=== PATIENT | female | born 1940 | race Caucasian/White ===

== ENCOUNTER 2016-12-28 07:58 | Day surgery (SDC) | payer MEDICAID, MEDICARE ==
[2016-12-27 07:15] VITALS: BMI 27.6
[2016-12-28] MEDS ORDERED: Propofol 10 mg/ml Inj (20 ML) ONE (09:08)
[2016-12-28] MEDS ORDERED: Midazolam 2 MG/2 ML VIAL ONE (09:09)
[2016-12-28] MEDS ORDERED: Lactated Ringer's 1,000 ML IV SCH (10:03)
[2016-12-28 10:35] VITALS: PULSE 79
[2016-12-28 10:55] VITALS: BP 138/83; RESP 19; TEMP 97.5; O2SAT 100
== END 2016-12-28 11:40 | disposition home or self-care (01) ==
LOC: ENDO 07:58
PROVIDERS: ATTEND Internal Medicine Gastroenterology
DX: D12.2 Benign neoplasm of ascending colon (principal); K29.50 Unspecified chronic gastritis without bleeding; K44.9 Diaphragmatic hernia without obstruction or gangrene; D12.3 Benign neoplasm of transverse colon; K57.30 Diverticulosis of large intestine without perforation or abscess without bleeding; K64.8 Other hemorrhoids; I10 Essential (primary) hypertension; K59.09 Other constipation; F03.90 Unspecified dementia, unspecified severity, without behavioral disturbance, psychotic disturbance, mood disturbance, and anxiety; I48.91 Unspecified atrial fibrillation; E55.9 Vitamin D deficiency, unspecified; R11.0 Nausea; K30 Functional dyspepsia
CPT/HCPCS: 43239; 45380; 45385; 88305; 88342; J2250; J2704; J3010; J7040; J7120

== ENCOUNTER 2018-06-25 10:45 | Observation (INO) | payer MEDICARE, MEDICAID ==
[2018-06-25 10:54] VITALS: BMI 27.7
--- NOTE | 2018-06-25 11:40 | ED PDOC ---
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 Patient is nonverbal secondary due to her Alzheimer's, so speaks for . 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 Patient's reports patient had a endoscopy performed a while back and was told by Dr. Zunilda Mcnamara that patient has gastritis. Also, patient shows to have a palpable visible hernia to the abdomen, which explains has been there for approximately 6 months. States patient is always complaining of pain in this area of her abdomen every day. Patient's denies patient having any nausea, vomiting, diarrhea, or any other complaints at this time. also mentions patient had a normal bowel movement and normally uses the bathroom every two days. Notes patient urinates frequently and wears a diaper every night. PMD: Dr. Juan M Bhakta Past Medical History - Provider Review Nursing Documentation Reviewed: Yes - Infectious Disease Hx of Infectious Diseases: None - Tetanus Immunization Tetanus Immunization: Unknown - Cardiac Hx Cardiac Disorders: Yes Hx Hypertension: Yes - Pulmonary Hx Respiratory Disorders: Yes Hx Pneumonia: Yes - Neurological Hx Paralysis: No - HEENT Hx HEENT Disorder: Yes Hx Cataracts: Yes (CATARACT SURGERY) - Renal Hx Renal Disorder: No - Endocrine/Metabolic Hx Endocrine Disorders: No - Hematological/Oncological Hx Blood Transfusions: (UNKNOWN) - Integumentary Hx Dermatological Disorder: No - Musculoskeletal/Rheumatological Hx Musculoskeletal Disorders: Yes - Gastrointestinal Hx Gastroesophageal Reflux: Yes - Genitourinary/Gynecological Hx Genitourinary Disorders: Yes Hx Urinary Tract Infection: Yes - Psychiatric Hx Emotional Abuse: No Hx Physical Abuse: No Hx Substance Use: No - Past Surgical History Past Surgical History: No Previous - Surgical History Hx Appendectomy: Yes Hx Cardiac Catheterization: Yes - Anesthesia Hx Anesthesia Reactions: No Hx Malignant Hyperthermia: No - Suicidal Assessment Feels Threatened In Home Enviroment: No Family/Social History - Physician Review Nursing Documentation Reviewed: Yes Family/Social History: No Known Family HX Smoking Status: Never Smoked Hx Alcohol Use: No Hx Substance Use: No Hx Substance Use Treatment: No Allergies/Home Meds Allergies/Adverse Reactions: Allergies No Known Allergies Allergy (Verified 06/25/18 10:53) Home Medications: Home Meds Medication Instructions Recorded Confirmed Aspirin [[place] Aspirin] 81 mg PO DAILY 12/21/16 06/25/18 Cholecalciferol [Vitamin D 1000 IU] 2,000 iu PO DAILY 12/21/16 06/25/18 Donepezil [Aricept] 10 mg PO DAILY 12/21/16 06/25/18 Famotidine [Pepcid] 20 mg PO DAILY 12/21/16 06/25/18 Ketotifen Fumarate [Zaditor 5 ml] 1 drop OU DAILY 12/21/16 06/25/18 Memantine [Namenda] 5 mg PO DAILY 12/21/16 06/25/18 Ondansetron HCl [Zofran] 4 mg PO PRN PRN 12/21/16 06/25/18 Review of Systems - Physician Review All systems were reviewed & negative as marked: Yes - Review of Systems Cardiovascular: Chest Pain Gastrointestinal: Abdominal Pain. absent: Diarrhea, Nausea, Vomiting Genitourinary Female: Frequency Physical Exam - Physical Exam Narrative Physical Exam (Text): Gen: VS reviewed, patient is non-verbal secondary to limited Alzheimer's, well nourished, nontoxic, mild distress. ENT: normal pharynx. Eye: EOMI, PERRL. Neck: no JVD, supple, no adenopathy. CV: regular rate, irregularly irregular rhythm, no rubs, no murmur, no gallops, S1, S2, pulses equal and strong. Pulm: no distress, clear to auscultation, no wheeze, no rhonchi, breath sounds equal, no rales. Abd: enlarged with umbilical hernia (reproducibly smaller to touch), no guarding, no rebound, no rigidity, normal bowel sounds. Ext: trace edema to lower extremities bilaterally. Skin: good color, no rash, no cyanosis. Psych: responds appropriately to questions, normal affect. Neuro: oriented x 3, CN2-12 intact grossly, motor intact, sensation intact. Vital Signs Temp Pulse Resp BP Pulse Ox 06/25/18 10:45 98.3 F 71 16 133/78 100 Medical Decision Making ED Course and Treatment: 06/25/18 11:44 Impression: 77 year old female with chest/abdominal pain. Physical exam shows heart is irregularly irregular rhythm; trace edema to lower extremities bilaterally; abdomen is enlarged with umbilical hernia (reproducibly smaller to touch); patient is non-verbal secondary to limited Alzheimer's. Plan: -- EKG -- Abd/Pelvis CT -- Chest X-ray -- Labs -- Reassess and disposition Prior Visits: Notes and results from previous visits were reviewed. Patient was last seen in the emergency department on 10/16/2016 for AMS. Patient was admitted. Progress Notes: 06/25/18 10:53 EKG: Ordered, reviewed, and independently interpreted the EKG. Rate : 71 BPM Rhythm : Atrial Fibrillation Interpretation : Right Bundle Branch Block, no acute ST- and T- wave abnormality. Comparison : No previous EKG for comparison. 06/25/18 14:44 Family has been informed patient will need a follow-up with specialist due to abnormal findings on CT scan. 06/25/18 15:[address] beltrán, patient to be admitted observation for chest pain. consult request to dr. cisneros and dr. peguero. patient remained stable throughout ED course. - Lab Interpretations I have reviewed the lab results: Yes - RAD Interpretation Narrative RAD Interpretations (Text): 06/25/2018 12:34 Chest X-ray IMPRESSION: No active disease. Dictator: Kyle Ramon MD 06/25/2018 14:25 Abd/Pelvis CT IMPRESSION: Large right periumbilical hernia as well as a large hiatal hernia. Colonic diverticulosis. Cardiomegaly. Small left pleural effusion. Prominence of the endometrium, atypical for a postmenopausal female; recommend gynecological consultation. Dictator: Quincy Silver MD Radiology Orders: 06/25/18 11:37 CHEST PORTABLE [RAD] Stat 06/25/18 11:38 ABDOMEN & PELVIS [ABD & PELVIS IV CONTRAST ONLY] [CT] Stat - Scribe Statement The provider has reviewed the documentation as recorded by the Scribe Gopi Vega Provider Scribe Attestation: All medical record entries made by the Scribe were at my direction and personally dictated by me. I have reviewed the chart and agree that the record accurately reflects my personal performance of the history, physical exam, medical decision making, and the department course for this patient. I have also personally directed, reviewed, and agree with the discharge instructions and disposition. Disposition/Present on Arrival - Present on Arrival Any Indicators Present on Arrival: No History of DVT/PE: No History of Uncontrolled Diabetes: No Urinary Catheter: No History of Decub. Ulcer: No History Surgical Site Infection Following: None - Disposition Have Diagnosis and Disposition been Completed?: Yes Diagnosis: Chest pain, Abdominal pain Disposition: HOSPITALIZED Disposition Time: 15:20 Patient Plan: Observation Patient Problems: Current Active Problems Problem Status Onset Chest pain Acute Abdominal pain Acute Condition: STABLE
[2018-06-25 12:26] LABS: BASO # 0.02 K/mm3 (0.0-2.0); BASO % 0.3 % (0.0-3.0); EOS # 0.2 (0.0-0.7); EOS % 3.1 % (1.5-5.0); GRAN # 4.09 (1.4-6.5); GRAN % 63.3 % (50.0-68.0); HEMOGLOBIN 12.3 g/dL (12.0-16.0); LYMPH # 1.8 (1.2-3.4); LYMPH % 27.1 % (22.0-35.0); MEAN CELL VOLUME 96.7 fl (80.0-105.0); MEAN PLATELET VOLUME 9.6 fl (7.0-11.0); MONO # 0.4 (0.1-0.6); MONO % 6.2 % (1.0-6.0); RBC 3.97 10^6/uL (3.5-6.1); RED CELL DISTRIBUTION WIDTH 14.9 % (11.5-14.5); WHITE BLOOD COUNT 6.5 10^3/uL (4.5-11.0)
[2018-06-25 12:34] LABS: INR 1.03; PARTIAL THROMBOPLASTIN TIME 31.2 Seconds (25.1-36.5); PROTHROMBIN TIME 11.9 SECONDS (9.4-12.5)
[2018-06-25 12:35] LABS: ALB/GLOB RATIO 1.1 (1.1-1.8); ALBUMIN 3.5 g/dL (3.0-4.8); BLOOD UREA NITROGEN 24 mg/dL (7-21); CALCIUM 9.4 mg/dL (8.4-10.5); GFR NON-AFRICAN AMERICAN > 60; LIPASE 55 U/L (23-300)
[2018-06-25 12:37] LABS: ALT/SGPT 30 U/L (7-56); AST/SGOT 31 U/L (14-36)
--- NOTE | 2018-06-25 12:38 | RAD ---
Date of service: 06/25/2018 HISTORY: chest pain COMPARISON: 10/19/2016 FINDINGS: LUNGS: No active pulmonary disease. PLEURA: No significant pleural effusion identified, no pneumothorax apparent. CARDIOVASCULAR: No aortic atherosclerotic calcification present. Mild cardiomegaly no pulmonary vascular congestion. OSSEOUS STRUCTURES: No significant abnormalities. VISUALIZED UPPER ABDOMEN: Normal. OTHER FINDINGS: None. IMPRESSION: No active disease.
[2018-06-25 12:47] LABS: TROPONIN I < 0.01 ng/mL
[2018-06-25] MEDS ORDERED: Iohexol 350 MG/100 ML VIAL ONE (12:59)
--- NOTE | 2018-06-25 14:29 | CT ---
Date of service: 06/25/2018 PROCEDURE: CT Abdomen and Pelvis with contrast HISTORY: abdominal pain, hernia COMPARISON: 02/06/2015 TECHNIQUE: Contrast dose: Radiation dose: Total exam DLP = 774.95 mGy-cm. This CT exam was performed using one or more of the following dose reduction techniques: Automated exposure control, adjustment of the mA and/or kV according to patient size, and/or use of iterative reconstruction technique. FINDINGS: LOWER THORAX: Large hiatal hernia. Cardiomegaly. Small left pleural effusion. LIVER: Unremarkable. No gross lesion or ductal dilatation. GALLBLADDER AND BILE DUCTS: Unremarkable. PANCREAS: Unremarkable. No gross lesion or ductal dilatation. SPLEEN: Unremarkable. ADRENALS: Unremarkable. No mass. KIDNEYS AND URETERS: Unremarkable. No hydronephrosis. No solid mass. VASCULATURE: Unremarkable. No aortic aneurysm. No aortic atherosclerotic calcification or mural plaque present. BOWEL: Extensive left-sided colonic diverticulosis. No obstruction. No gross mural thickening. APPENDIX: Normal appendix. PERITONEUM: Unremarkable. No free fluid. No free air. LYMPH NODES: Unremarkable. No enlarged lymph nodes. BLADDER: Unremarkable. REPRODUCTIVE: Prominence of the endometrium, atypical for a postmenopausal female; recommend gynecological consultation. BONES: Chronic L1 compression fracture. OTHER FINDINGS: Large right periumbilical hernia containing omental fat. IMPRESSION: Large right periumbilical hernia as well as a large hiatal hernia. Colonic diverticulosis. Cardiomegaly. Small left pleural effusion. Prominence of the endometrium, atypical for a postmenopausal female; recommend gynecological consultation.
--- NOTE | 2018-06-25 17:52 | CARD ---
APPROVED REPORT Date of service: 06/25/2018 EKG Measurement Heart [id number] <Conclusion> Atrial fibrillation Right bundle branch block Abnormal ECG
[2018-06-25] MEDS: Sodium Chloride 0.45% 1,000 ML IV SCH (21:59)
--- NOTE | 2018-06-26 01:37 | HP ---
DATE OF EXAM: HISTORY OF PRESENT ILLNESS: I was called down to the emergency room to see this nice young lady. She is an Kisw[place]ili [place] lady. She is presently confused in bed. She has a past medical history of Alzheimer's, hypertension, pneumonia, chronic AFib. 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 The patient's reports she had endoscopy performed well back. She had gastritis in the past. There is a visible hernia in the abdomen. She had abdominal pain and chest pain and now she is wearing the diaper. She is incontinent of urine. She has hypertension, pneumonia history, history of cataract surgery, GERD, urinary tract infections in the past, cardiac catheterizations, she had appendectomy. FAMILY HISTORY: No known family history. SOCIAL HISTORY: Never smoked. No alcohol. No drugs. ALLERGIES: NO KNOWN DRUG ALLERGIES. MEDICATIONS: She is on aspirin, vitamin D, Aricept, Pepcid, Zaditor, Namenda and Zofran. REVIEW OF SYSTEMS: She is smiling and laughing. She has chest pain and abdominal pain. No nausea, vomiting, constipation, diarrhea, or increasing urinary frequency. PHYSICAL EXAMINATION: VITAL SIGNS: She has a 98.3 temperature, 71 pulse, 16 respiratory rate, 133/78 blood pressure, and 100% O2 sat. GENERAL: She is alert, smiling, laughing, no acute distress, and nonverbal secondary to Alzheimer's disease. No apparent distress. HEENT: Extraocular muscles are intact. Pupils are equal and reactive to light. NECK: Supple. No JVD. Throat is moist. HEART: Irregular. Normal S1 and S2. LUNGS: Decreased breath sounds, but clear to auscultation. No wheezes, rhonchi or rales. ABDOMEN: Extremely large right-sided abdominal hernia, is reducible to touch, it is big. No guarding. No rebound. No CVA tenderness. EXTREMITIES: No edema. SKIN: For the most parts, no rashes or ulcers appreciated. Fair turgor. NEUROLOGIC: She has a normal affect, but she just laughs. Cranial nerves II through XII grossly intact. Alert, but not oriented, cannot adjust that. LABORATORY DATA: She had multiple tests done. Chest x-ray; no acute disease. CAT scan of the abdomen and pelvis shows a large right periumbilical hernia as well as the large hiatal hernia, colonic diverticulosis, cardiomegaly, small left pleural effusion, problems with endometrium made typical for postmenopausal female. RECOMMENDATIONS: Gynecological consults. She had multiple tests done. She has 6.5 white count, 12.3 hemoglobin, 38.4 hematocrit with 338,000 platelets. INR 1.03. Sodium 142, potassium 4.2, BUN 24, creatinine 0.7, should be on IV fluids. GFR is greater than 60. Sugar is 131, calcium is 9.4, total bili is 0.3, AST is 21, ALT is 30, and alk phos is 65. Troponin I is less than 0.01, total protein 6.9, albumin is 2.5, globulin 3.3, and lipase is 55. She will have some physical therapy. She will have IV fluids. We put back her on medications. We check on the troponins x2 consult to evaluate her issues and hopefully she did well. She is here for chest pain, abdominal pain, AFib, which is chronic. She has an abnormal endometrial layer, she will have STRAIGHTEDGE MAN consult and presently she is comfortable in bed. She is here on observation. Chris Hamilton DO MTDD
[2018-06-26 04:33] LABS: HEMOGLOBIN 13.2 g/dL (12.0-16.0); MEAN CELL VOLUME 94.7 fl (80.0-105.0); MEAN CORPUSCULAR HEMOGLOBIN 30.7 pg (25.0-35.0); MEAN CORPUSCULAR HGB CONC 32.4 g/dl (31.0-37.0); MEAN PLATELET VOLUME 9.5 fl (7.0-11.0); RBC 4.3 10^6/uL (3.5-6.1); RED CELL DISTRIBUTION WIDTH 14.8 % (11.5-14.5); WHITE BLOOD COUNT 5.4 10^3/uL (4.5-11.0)
[2018-06-26 04:56] LABS: TROPONIN I < 0.01 ng/mL
[2018-06-26 04:58] LABS: ALBUMIN 3.6 g/dL (3.0-4.8); ALT/SGPT 29 U/L (7-56); AST/SGOT 29 U/L (14-36); BLOOD UREA NITROGEN 17 mg/dL (7-21); CALCIUM 9.1 mg/dL (8.4-10.5); GFR NON-AFRICAN AMERICAN > 60
--- NOTE | 2018-06-26 08:07 | CP.PCM.CON ---
History of Present Illness - History of Present Illness History of Present Illness: 77F with PMHx of Alzheimer's disease, HTN, pneumonia, and atrial fibrillation [place] [facility] with complains of chest pain and abdominal pain the past two days. Patient is non verbal, referred to ED documentation records for inform ation. History was given to ED attending via surgery scheduling coordinator as patient's is japanese speaking. At time of examination, patient laying in bed and appears comfortable. As per reports, noted ventral hernia for about 6 months ago. As per patient is having BMs. PMH:as stated above PSH: ?prior ventral hernia repair All: NKDA Review of Systems - Review of Systems Systems not reviewed;Unavailable: Dementia Past Patient History - Infectious Disease Hx of Infectious Diseases: None - Tetanus Immunizations Tetanus Immunization: Unknown - Past Social History Smoking Status: Never Smoked - CARDIAC Hx Cardia Arrhythmia: Yes (Afib) Hx Hypertension: Yes - PULMONARY Hx Pneumonia: Yes - NEUROLOGICAL Hx Alzheimer's Disease: Yes - HEENT Hx Cataracts: Yes - RENAL Hx Chronic Kidney Disease: No - ENDOCRINE/METABOLIC Hx Endocrine Disorders: No - HEMATOLOGICAL/ONCOLOGICAL Hx Blood Transfusions: (UNKNOWN) - INTEGUMENTARY Hx Dermatological Problems: No - MUSCULOSKELETAL/RHEUMATOLOGICAL Hx Falls: No - GASTROINTESTINAL Hx Gastrointestinal Disorders: Yes (Gastritis) Hx Gastroesophageal Reflux: Yes Other/Comment: periumbical hernia - GENITOURINARY/GYNECOLOGICAL Hx Urinary Tract Infection: Yes - PSYCHIATRIC Hx Anxiety: Yes - SURGICAL HISTORY Hx Appendectomy: Yes Hx Cardiac Catheterization: Yes - ANESTHESIA Hx Anesthesia Reactions: No Hx Malignant Hyperthermia: No Meds Allergies/Adverse Reactions: Allergies Allergy/AdvReac Type Severity Reaction Status Date / Time No Known Allergies Allergy Verified 06/25/18 10:53 - Medications Medications: Current Medications Aspirin (Ecotrin) 81 mg PO DAILY [facility] Donepezil HCl (Aricept) 10 mg PO DAILY [facility] Famotidine (Pepcid) 20 mg PO DAILY [facility] Sodium Chloride (Sodium Chloride 0.45%) 1,000 mls @ 40 mls/hr IV .Q24H [facility] Last Admin: 06/25/18 21:59 Dose: 40 mls/hr Memantine (Namenda) 5 mg PO DAILY [facility] Non-Formulary Medication (Ketotifen Fumarate [Zaditor]) 1 drop OU DAILY [facility] Ondansetron HCl (Zofran Tab) 4 mg PO Q6H PRN PRN Reason: Nausea/Vomiting Physical Exam - Constitutional Appears: No Acute Distress - Head Exam Head Exam: NORMOCEPHALIC - Eye Exam Eye Exam: EOMI, Normal appearance - ENT Exam ENT Exam: Mucous Membranes Moist - Respiratory Exam Respiratory Exam: NORMAL BREATHING PATTERN - Cardiovascular Exam Cardiovascular Exam: +S1, +S2 - GI/Abdominal Exam GI & Abdominal Exam: Hernia, Soft. absent: Distended, Firm, Guarding Additional comments: Ventral incisional hernia - Neurological Exam Neurological exam: Alert, Oriented x3 - Psychiatric Exam Psychiatric exam: Normal Mood - Skin Skin Exam: Dry, Intact, Warm Results - Vital Signs Recent Vital Signs: Last Vital Signs Temp 98.4 F 06/26/18 06:00 Pulse 82 06/26/18 06:00 Resp 18 06/26/18 06:00 BP 136/61 06/26/18 06:00 Pulse Ox 97 06/26/18 06:00 - Labs Result Diagrams: 06/26/18 04:15 06/26/18 04:15 Labs: Laboratory Results - last 24 hr 06/25/18 06/25/18 06/25/18 12:10 12:10 12:10 WBC 6.5 RBC 3.97 Hgb 12.3 Hct 38.4 MCV 96.7 MCH 31.0 MCHC 32.0 RDW 14.9 H Plt Count 338 MPV 9.6 Gran % 63.3 Lymph % (Auto) 27.1 Garland % (Auto) 6.2 H Eos % (Auto) 3.1 Baso % (Auto) 0.3 Gran # 4.09 Lymph # (Auto) 1.8 Garland # (Auto) 0.4 Eos # (Auto) 0.2 Baso # (Auto) 0.02 PT 11.9 INR 1.03 APTT 31.2 Sodium 142 Potassium 4.2 Chloride 108 H Carbon Dioxide 28 Anion Gap 10 BUN 24 H Creatinine 0.7 Est GFR ( Amer) > 60 Est GFR (Non-Af Amer) > 60 Random Glucose 131 H Calcium 9.4 Total Bilirubin 0.3 AST 31 ALT 30 Alkaline Phosphatase 65 Troponin I < 0.01 Total Protein 6.9 Albumin 3.5 Globulin 3.3 Albumin/Globulin Ratio 1.1 Lipase 55 06/26/18 06/26/18 04:15 04:15 WBC 5.4 RBC 4.30 Hgb 13.2 Hct 40.7 MCV 94.7 MCH 30.7 MCHC 32.4 RDW 14.8 H Plt Count 342 MPV 9.5 Gran % Lymph % (Auto) Garland % (Auto) Eos % (Auto) Baso % (Auto) Gran # Lymph # (Auto) Garland # (Auto) Eos # (Auto) Baso # (Auto) PT INR APTT Sodium 140 Potassium 4.2 Chloride 106 Carbon Dioxide 28 Anion Gap 10 BUN 17 Creatinine 0.7 Est GFR ( Amer) > 60 Est GFR (Non-Af Amer) > 60 Random Glucose 97 Calcium 9.1 Total Bilirubin 0.4 AST 29 ALT 29 Alkaline Phosphatase 83 Troponin I < 0.01 Total Protein 7.0 Albumin 3.6 Globulin 3.4 Albumin/Globulin Ratio 1.0 L Lipase Assessment & Plan - Assessment and Plan (Free Text) Assessment: 77F with incisional hernia, not incarcerated, easily reducible Plan: -Patient's hernia easily reducible -Monitor bowel function -No plans for acute surgical intervention at this present time -Further recs per Dr. Steen covering for Dr. Honorio Merrill PGY3
--- NOTE | 2018-06-26 08:36 | CP.PCM.CON ---
<Allyson Sharp - Last Filed: 06/26/18 12:32> History of Present Illness - History of Present Illness History of Present Illness: Gastroenterology Fellow/PGY6 Consult Note 77 year old female with PMH of Aib on Eliquis, HTN, HLD, Alzheimer's Dementia, and constipation presenting with abdominal pain. Patient is nonverbal with history provided by at bedside. Patient notes to have mi-epigastric and suzy-umbilicial pain for the last two days. Denies nausea, vomiting, diarrhea, melena, hematochezia, acid reflux, heartburn, or unintentional weight loss. Admits to bowel movements every two days. No laxative/ stool softeners used at home. Prior EGD/colonoscopy 12/2016 showed 3cm hiatal hernia, H. pylori negative gastritis, 4mm ileocecal valve, 4mm ascending, 5mm/6mm transverse tubular adenomas, sigmoid diverticulosis, and Grade II internal hemorrhoids. Family History- denies stomach cancer, colon cancer Social History- denies tobacco, alcohol, illicit drug use Surgical History- possible ventral hernia repair Review of Systems - Review of Systems Review of Systems: 12-point review of system negative except for as above Past Patient History - Infectious Disease Hx of Infectious Diseases: None - Tetanus Immunizations Tetanus Immunization: Unknown - Past Social History Smoking Status: Never Smoked - CARDIAC Hx Cardia Arrhythmia: Yes (Afib) Hx Hypertension: Yes - PULMONARY Hx Pneumonia: Yes - NEUROLOGICAL Hx Alzheimer's Disease: Yes - HEENT Hx Cataracts: Yes - RENAL Hx Chronic Kidney Disease: No - ENDOCRINE/METABOLIC Hx Endocrine Disorders: No - HEMATOLOGICAL/ONCOLOGICAL Hx Blood Transfusions: (UNKNOWN) - INTEGUMENTARY Hx Dermatological Problems: No - MUSCULOSKELETAL/RHEUMATOLOGICAL Hx Falls: No - GASTROINTESTINAL Hx Gastrointestinal Disorders: Yes (Gastritis) Hx Gastroesophageal Reflux: Yes Other/Comment: periumbical hernia - GENITOURINARY/GYNECOLOGICAL Hx Urinary Tract Infection: Yes - PSYCHIATRIC Hx Anxiety: Yes - SURGICAL HISTORY Hx Appendectomy: Yes Hx Cardiac Catheterization: Yes - ANESTHESIA Hx Anesthesia Reactions: No Hx Malignant Hyperthermia: No Meds Allergies/Adverse Reactions: Allergies Allergy/AdvReac Type Severity Reaction Status Date / Time No Known Allergies Allergy Verified 06/25/18 10:53 - Medications Medications: Current Medications Aspirin (Ecotrin) 81 mg PO DAILY [facility] Donepezil HCl (Aricept) 10 mg PO DAILY [facility] Famotidine (Pepcid) 20 mg PO DAILY [facility] Sodium Chloride (Sodium Chloride 0.45%) 1,000 mls @ 40 mls/hr IV .Q24H [facility] Last Admin: 06/25/18 21:59 Dose: 40 mls/hr Memantine (Namenda) 5 mg PO DAILY [facility] Non-Formulary Medication (Ketotifen Fumarate [Zaditor]) 1 drop OU DAILY [facility] Ondansetron HCl (Zofran Tab) 4 mg PO Q6H PRN PRN Reason: Nausea/Vomiting Physical Exam - Constitutional Appears: Non-toxic, No Acute Distress - Head Exam Head Exam: ATRAUMATIC, NORMOCEPHALIC - Eye Exam Eye Exam: EOMI, PERRL Pupil Exam: PERRL. absent: Miosis, Mydriatic - ENT Exam ENT Exam: Mucous Membranes Moist, Normal Oropharynx - Neck Exam Neck exam: Positive for: Full Rom, Normal Inspection - Cardiovascular Exam Cardiovascular Exam: Irregular Rhythm, +S1, +S2. absent: Gallop, Rubs - GI/Abdominal Exam GI & Abdominal Exam: Hernia, Normal Bowel Sounds, Soft, Tenderness. absent: Distended, Firm, Guarding, Organomegaly, Rebound, Rigid Additional comments: mid-epigastric tenderness to palpation, ventral incision hernia- reducible - Extremities Exam Extremities exam: Positive for: normal inspection, pedal edema - Neurological Exam Neurological exam: Alert - Psychiatric Exam Psychiatric exam: Normal Affect, Normal Mood - Skin Skin Exam: Dry, Intact, Normal Color, Warm Results - Vital Signs Recent Vital Signs: Last Vital Signs Temp 98.4 F 06/26/18 06:00 Pulse 82 06/26/18 06:00 Resp 18 06/26/18 06:00 BP 136/61 06/26/18 06:00 Pulse Ox 97 06/26/18 06:00 - Labs Result Diagrams: 06/26/18 04:15 06/26/18 04:15 Labs: Laboratory Results - last 24 hr 06/25/18 06/25/18 06/25/18 12:10 12:10 12:10 WBC 6.5 RBC 3.97 Hgb 12.3 Hct 38.4 MCV 96.7 MCH 31.0 MCHC 32.0 RDW 14.9 H Plt Count 338 MPV 9.6 Gran % 63.3 Lymph % (Auto) 27.1 Sibley % (Auto) 6.2 H Eos % (Auto) 3.1 Baso % (Auto) 0.3 Gran # 4.09 Lymph # (Auto) 1.8 Sibley # (Auto) 0.4 Eos # (Auto) 0.2 Baso # (Auto) 0.02 PT 11.9 INR 1.03 APTT 31.2 Sodium 142 Potassium 4.2 Chloride 108 H Carbon Dioxide 28 Anion Gap 10 BUN 24 H Creatinine 0.7 Est GFR ( Amer) > 60 Est GFR (Non-Af Amer) > 60 Random Glucose 131 H Calcium 9.4 Total Bilirubin 0.3 AST 31 ALT 30 Alkaline Phosphatase 65 Troponin I < 0.01 Total Protein 6.9 Albumin 3.5 Globulin 3.3 Albumin/Globulin Ratio 1.1 Lipase 55 06/26/18 06/26/18 04:15 04:15 WBC 5.4 RBC 4.30 Hgb 13.2 Hct 40.7 MCV 94.7 MCH 30.7 MCHC 32.4 RDW 14.8 H Plt Count 342 MPV 9.5 Gran % Lymph % (Auto) Sibley % (Auto) Eos % (Auto) Baso % (Auto) Gran # Lymph # (Auto) Sibley # (Auto) Eos # (Auto) Baso # (Auto) PT INR APTT Sodium 140 Potassium 4.2 Chloride 106 Carbon Dioxide 28 Anion Gap 10 BUN 17 Creatinine 0.7 Est GFR ( Amer) > 60 Est GFR (Non-Af Amer) > 60 Random Glucose 97 Calcium 9.1 Total Bilirubin 0.4 AST 29 ALT 29 Alkaline Phosphatase 83 Troponin I < 0.01 Total Protein 7.0 Albumin 3.6 Globulin 3.4 Albumin/Globulin Ratio 1.0 L Lipase Assessment & Plan - Assessment and Plan (Free Text) Assessment: 77 year old female with PMH of Aib on Eliquis, HTN, HLD, Alzheimer's Dementia, and constipation presenting with abdominal pain. Active treatment of abdominal pain with CT A/P IV contrast showing right periumbilical hernia with omental fat. Prior EGD/colonoscopy 12/2016 showed 3cm hiatal hernia, H. pylori negative gastritis, 4mm ileocecal valve, 4mm ascending, 5mm/6mm transverse tubular adenomas, sigmoid diverticulosis, and Grade II internal hemorrhoids. Plan: -no acute pathology on CT A/P -ventral hernia reducible -surgery- no intervention planned -continue pepcid -stool retention RUQ -start Miralax daily -clear liquid diet, advance as tolerated -will follow clinical course <Joshua Barrera - Last Filed: 06/26/18 14:01> Meds - Medications Medications: Current Medications Aspirin (Ecotrin) 81 mg PO DAILY [facility] Last Admin: 06/26/18 09:44 Dose: 81 mg Donepezil HCl (Aricept) 10 mg PO DAILY [facility] Last Admin: 06/26/18 09:45 Dose: 10 mg Famotidine (Pepcid) 20 mg PO DAILY [facility] Last Admin: 06/26/18 09:45 Dose: 20 mg Sodium Chloride (Sodium Chloride 0.45%) 1,000 mls @ 40 mls/hr IV .Q24H [facility] Last Admin: 06/25/18 21:59 Dose: 40 mls/hr Memantine (Namenda) 5 mg PO DAILY [facility] Last Admin: 06/26/18 09:45 Dose: 5 mg Non-Formulary Medication (Ketotifen Fumarate [Zaditor]) 1 drop OU DAILY [facility] Last Admin: 06/26/18 09:46 Dose: Not Given Ondansetron HCl (Zofran Tab) 4 mg PO Q6H PRN PRN Reason: Nausea/Vomiting Results - Vital Signs Recent Vital Signs: Last Vital Signs Temp 97.2 F L 06/26/18 12:00 Pulse 65 06/26/18 12:00 Resp 18 06/26/18 12:00 BP 147/72 06/26/18 12:00 Pulse Ox 97 06/26/18 06:00 - Labs Result Diagrams: 06/26/18 04:15 06/26/18 04:15 Labs: Laboratory Results - last 24 hr 06/26/18 06/26/18 04:15 04:15 WBC 5.4 RBC 4.30 Hgb 13.2 Hct 40.7 MCV 94.7 MCH 30.7 MCHC 32.4 RDW 14.8 H Plt Count 342 MPV 9.5 Sodium 140 Potassium 4.2 Chloride 106 Carbon Dioxide 28 Anion Gap 10 BUN 17 Creatinine 0.7 Est GFR ( Amer) > 60 Est GFR (Non-Af Amer) > 60 Random Glucose 97 Calcium 9.1 Total Bilirubin 0.4 AST 29 ALT 29 Alkaline Phosphatase 83 Troponin I < 0.01 Total Protein 7.0 Albumin 3.6 Globulin 3.4 Albumin/Globulin Ratio 1.0 L Attending/Attestation - Attestation I have personally seen and examined this patient.: Yes I have fully participated in the care of the patient.: Yes I have reviewed all pertinent clinical information: Yes Notes (Text): 06/26/18 13:57 I have seen and examined patient with GI fellow. Agree with above documentation with the following additions. In brief, this is a 77 year old female with his tory of atrial fibrillation, alzheimer's dementia, HTN, hyperlipidemia who presents to hospital with complaint of abdominal pain. She is non-verbal at baseline, additional information obtained via chart review and discussion with patient's at bedside. She reports suzy-umbilical pain for the past two days, worse on movement. She denies associated nausea, vomiting, fever/chills, weight loss, or change in bowel habits. She is typically constipated and has a bowel movement every other day. She had an EGD/colonoscopy in 2017 showing gastritis, hiatal hernia, diverticulosis, and adenomatous colon polyps. Atrial fibrillation Dementia HTN Hyperlipidemia Abdominal pain Ventral hernia Chronic constipation CT imaging reviewed by me showing no acute intraabdominal GI pathology, abnormal appearance of endometrium noted - Diet as tolerated - Maintain bowel regimen to prevent recurrent constipation - Follow up surgical recommendations regarding hernia - Follow up REINFORCING STEEL MACHINE OPERATOR recommendations - No further planned GI interventions at this time, will sign off case. Please reconsult as necessary, thank you.
[2018-06-26] MEDS: Non Formulary Medication (Ketotifen Fumarate [Zaditor] 1 DROP) OU SCH (09:46)
[2018-06-26] MEDS ORDERED: Barium Sulfate Susp 2.1% w/v, 2.0% w/w 450 mL Bottle PO ONE (11:49)
--- NOTE | 2018-06-26 15:02 | DS ---
HISTORY OF PRESENT ILLNESS: I saw her this morning resting comfortably in bed with a gastroenterology fellow. She is doing much better today than yesterday. She is hungry, she is smiling, her belly is nice and soft. She does have a hernia, awaiting for other doctors to come see her. I am hoping that if she eats well and the other doctors say it is okay, we will discharge her home today. MEDICATIONS: She was on Aricept, Ecotrin, Zaditor, Namenda, Pepcid, IV fluids and Zofran. PHYSICAL EXAMINATION: VITAL SIGNS: She has a 98.4 temperature, 62 pulse, 136/61 blood pressure, 18 respiratory rate, 97% O2 sat on room air. HEET: Head is atraumatic, normocephalic. HEART: Regular rate. LUNGS: Clear to auscultations. ABDOMEN: Soft, nontender, positive bowel sounds. She does have a large abdominal hernia which Surgery says they are not going to do anything about. EXTREMITIES: No edema and that is her baseline. LABORATORY DATA: She has 140 sodium, potassium 4.2, BUN 17, creatinine 0.7, GFR is greater than 60, sugar is 97. Calcium is 9.1, total bili is 0.4, AST is 29, ALT is 29, alk phos is 83. Two troponins are less than 0.01. Total protein is 7. White count is 5.4, hemoglobin 13.2, hematocrit 40.7, platelets of 342,000. INR is 1.03. ASSESSMENT AND PLAN: She had a CAT scan of the abdomen and pelvis that showed endometrium that was thickened. I called in INTERNET MARKETING DIRECTOR for that, Dr. Gera Olmedo, the surgeon already saw the abdomen and so no surgery. GI said they will increase the diet and she could probably go home this afternoon. Cardiology, await and see what they say, but with negative troponins and the way she is, they probably not going to want to do anything at this time. So if I get the okay from INTERNET MARKETING DIRECTOR, we will discharge this patient home. She is 77 with dementia, which I believe is baseline. So my plan is what say, she can go, we will discharge her this afternoon. She is on observation level of care. When she came in, she had chest pain, abdominal pain and now she has endometrial prominence. Chris Hamilton DO VIKTORIYA
--- NOTE | 2018-06-26 18:06 | CT ---
Date of service: 06/26/2018 PROCEDURE: CT Abdomen and Pelvis with contrast HISTORY: Abdominal pain. COMPARISON: June 25, 2018. TECHNIQUE: Oral contrast only. Radiation dose: Total exam DLP = 815.53 mGy-cm. This CT exam was performed using one or more of the following dose reduction techniques: Automated exposure control, adjustment of the mA and/or kV according to patient size, and/or use of iterative reconstruction technique. FINDINGS: LOWER THORAX: Stable hiatal hernia. LIVER: Unremarkable. No gross lesion or ductal dilatation. GALLBLADDER AND BILE DUCTS: Unremarkable. PANCREAS: Unremarkable. No gross lesion or ductal dilatation. SPLEEN: Unremarkable. ADRENALS: Unremarkable. No mass. KIDNEYS AND URETERS: Unremarkable. No hydronephrosis. No solid mass. VASCULATURE: Unremarkable. No aortic aneurysm. No atherosclerotic calcification or mural plaque present. BOWEL: Diverticulosis without an acute inflammatory component or other associated pathologic process. APPENDIX: Normal appendix. PERITONEUM: Unremarkable. No free fluid. No free air. LYMPH NODES: Unremarkable. No enlarged lymph nodes. BLADDER: Unremarkable. REPRODUCTIVE: Unremarkable. BONES: No acute fracture. Stable compression deformity L1 vertebral body. OTHER FINDINGS: Stable periumbilical hernia containing fat only IMPRESSION: No acute findings related to/accounting for the clinical presentation. Additional benign and/or incidental findings described above. No significant interval change compared to the prior examination(s).
--- NOTE | 2018-06-26 18:51 | CON ---
DATE: 06/26/2018 HISTORY: The patient is a 77-year-old woman, who presents with chest pain. The patient suffers from Alzheimer's disease, hypertension and chronic atrial fibrillation. She is followed by Dr. Hough in his office. She underwent a stress test in 02/2018, which revealed normal LV function with no ischemia. Currently, the patient is chest pain free. PHYSICAL EXAMINATION: VITAL SIGNS: Blood pressure is 136/61, the heart rate is in the 60s. NECK: Negative JVD. LUNGS: Without rales. HEART: Reveals S1, S2. EXTREMITIES: Without edema. LABORATORY DATA: Hemoglobin is 13. BUN and creatinine, unremarkable. Troponins are negative x2. EKG is unremarkable. IMPRESSION: 1. Atypical chest pain. 2. No evidence for acute coronary syndrome. 3. Alzheimer disease. 4. Hypertension. Given these findings, the patient has been worked up thoroughly by her video control operator recently. There is no evidence for acute coronary syndrome. We will DC telemetry today. No further cardiac workup is necessary. We will transfer the patient back to the care of Dr. Hough once the patient is discharged. Maykel Burgos MD
[2018-06-26] MEDS: Sodium Chloride 0.45% 1,000 ML IV SCH (21:37)
[2018-06-27 02:52] VITALS: PULSE 58; O2SAT 98
--- NOTE | 2018-06-27 08:56 | DS ---
HISTORY OF PRESENT ILLNESS: I tried to discharge her yesterday until I got a call that the CORK INSULATION SETTER doctor wants a vaginal ultrasound. I tried to get that done yesterday, they could not do it. So, we are doing it this morning. She is still on observation. CAT scan I found out this morning was completely normal, the second CAT scan of the abdomen and pelvis. So we are going to do the vaginal ultrasound and discharge her today. PHYSICAL EXAMINATION: VITAL SIGNS: She has 97.9 temperature, 58 pulse, 156/80 blood pressure, 20 respiratory rate, 90% O2 sat on room air. HEENT: Head is atraumatic, normocephalic. HEART: Regular rate. LUNGS: Clear to auscultation. ABDOMEN: Soft. EXTREMITIES: No edema. MEDICATIONS: She is currently on Aricept, Ecotrin, Zaditor, Namenda, Pepcid, IV fluids and Zofran. She is going to go home on the same home medications. LABORATORY DATA: She has 140 sodium, potassium 4.2, BUN 17, creatinine 0.7, GFR is greater than 60, sugar is 97, calcium is 9.1, total bili is 0.4, AST is 29, ALT is 29, alk phos 83. Two troponins less than 0.01. She has a white count of 5.4, hemoglobin 13.2, hematocrit 40.7, platelets of 342,000. She is being seen by Cardiology, GI, Surgery and there was CORK INSULATION SETTER phone call. I do not see a note. She has atypical chest pain. Negative for acute coronary syndrome. She has Alzheimer's disease, hypertension. The first CAT scan showed a thickened endometrium. The second CAT scan did not show that. Surgery did not want to do anything for her large abdominal hernia. She has chronic AFib, dementia, hypertension. She will be discharged today after the vaginal ultrasound. She is still on observation. She came in with chest pain, AFib and abdominal pain, which all resolved. Chris Hamilton DO
--- NOTE | 2018-06-27 09:17 | CP.PCM.CON ---
History of Present Illness - History of Present Illness History of Present Illness: 77-year-old female with multiple medical problems admitted to hospital for evaluation of chest pain. On CT, incidental finding of prominent endometrium. A subsequent CT completed did not show this finding. I discussed this finding with patient and her . Discussed possible implications of this. I recommended having pelvic ultrasound done. Patient denies any symptoms of vaginal bleeding or irregular discharge. Discussed with patient that this is likely an incidental finding and that she will probably not need any intervention for this. Pelvic ultrasound scheduled for today before discharge home. All communication with patient and done through emotional disabilities teacher service. Past Patient History - Infectious Disease Hx of Infectious Diseases: None - Tetanus Immunizations Tetanus Immunization: Unknown - Past Social History Smoking Status: Never Smoked - CARDIAC Hx Cardia Arrhythmia: Yes (Afib) Hx Hypertension: Yes - PULMONARY Hx Pneumonia: Yes - NEUROLOGICAL Hx Alzheimer's Disease: Yes - HEENT Hx Cataracts: Yes - RENAL Hx Chronic Kidney Disease: No - ENDOCRINE/METABOLIC Hx Endocrine Disorders: No - HEMATOLOGICAL/ONCOLOGICAL Hx Blood Transfusions: (UNKNOWN) - INTEGUMENTARY Hx Dermatological Problems: No - MUSCULOSKELETAL/RHEUMATOLOGICAL Hx Falls: No - GASTROINTESTINAL Hx Gastrointestinal Disorders: Yes (Gastritis) Hx Gastroesophageal Reflux: Yes Other/Comment: periumbical hernia - GENITOURINARY/GYNECOLOGICAL Hx Urinary Tract Infection: Yes - PSYCHIATRIC Hx Anxiety: Yes - SURGICAL HISTORY Hx Appendectomy: Yes Hx Cardiac Catheterization: Yes - ANESTHESIA Hx Anesthesia Reactions: No Hx Malignant Hyperthermia: No Meds Allergies/Adverse Reactions: Allergies Allergy/AdvReac Type Severity Reaction Status Date / Time No Known Allergies Allergy Verified 06/25/18 10:53 - Medications Medications: Current Medications Aspirin (Ecotrin) 81 mg PO DAILY [facility] Last Admin: 06/26/18 09:44 Dose: 81 mg Donepezil HCl (Aricept) 10 mg PO DAILY [facility] Last Admin: 06/26/18 09:45 Dose: 10 mg Famotidine (Pepcid) 20 mg PO DAILY [facility] Last Admin: 06/26/18 09:45 Dose: 20 mg Sodium Chloride (Sodium Chloride 0.45%) 1,000 mls @ 40 mls/hr IV .Q24H [facility] Last Admin: 06/26/18 21:37 Dose: 40 mls/hr Memantine (Namenda) 5 mg PO DAILY [facility] Last Admin: 06/26/18 09:45 Dose: 5 mg Non-Formulary Medication (Ketotifen Fumarate [Zaditor]) 1 drop OU DAILY [facility] Last Admin: 06/26/18 09:46 Dose: Not Given Ondansetron HCl (Zofran Tab) 4 mg PO Q6H PRN PRN Reason: Nausea/Vomiting Physical Exam - Constitutional Appears: Well, No Acute Distress - Head Exam Head Exam: NORMAL INSPECTION - Eye Exam Eye Exam: Normal appearance - ENT Exam ENT Exam: Mucous Membranes Moist - GI/Abdominal Exam GI & Abdominal Exam: Soft. absent: Distended, Guarding, Rebound, Tenderness Results - Vital Signs Recent Vital Signs: Last Vital Signs Temp 97.9 F 06/27/18 00:01 Pulse 58 L 06/27/18 00:01 Resp 20 06/27/18 00:01 BP 156/80 H 06/27/18 00:01 Pulse Ox 98 06/27/18 00:01 - Labs Result Diagrams: 06/26/18 04:15 06/26/18 04:15 Assessment & Plan - Assessment and Plan (Free Text) Assessment: Incidental finding of prominent endometrioma on CT. Repeat CT did not show this finding. Pelvic ultrasound to be done today. She is asymptomatic with no bleeding or discharge Plan: Plan discussed with patient and patient . Pelvic ultrasound to be done this morning before discharge home. All patient questions answered. - Date & Time Date: 06/27/18 Time: 09:19
[2018-06-27] MEDS: Non Formulary Medication (Ketotifen Fumarate [Zaditor] 1 DROP) OU SCH (10:30)
--- NOTE | 2018-06-27 13:32 | US ---
Date of service: 06/27/2018 HISTORY: endometrium prominence, measure endometrial stripe COMPARISON: None available. TECHNIQUE: Transvaginal only. Real -time technique with 2D, duplex and color Doppler FINDINGS: UTERUS: Measures 3.2 x 3.8 x 7.5 cm. Normal in size and appearance. No fibroid or other mass lesion seen. ENDOMETRIUM: Measures 12.4 mm in diameter. Thickened endometrium without focal abnormality. CERVIX: No cervical abnormality identified. RIGHT OVARY: Not visible. LEFT OVARY: Not visible. FREE FLUID: No significant free fluid noted. OTHER FINDINGS: None. IMPRESSION: Endometrial hypertrophy without focal abnormality. Follow-up strongly recommended based on thickness and postmenopausal status. Limitations of the current examination: Nondiagnostic study of the adnexa, obscured by overlying bowel gas.
--- NOTE | 2018-06-27 14:01 | PN ---
DATE: 06/27/[address] Maykel Burgos. SUBJECTIVE: The patient denies any chest pain at this time and she does not appear to be in apparent distress. According to the , the patient was experiencing epigastric discomfort. PHYSICAL EXAMINATION: VITAL SIGNS: Blood pressure 156/80, heart rate 58, temperature 97.9, respirations 20. HEENT: Normocephalic. CHEST: Clear. HEART: S1 and S2 . EXTREMITIES: No edema. EKG revealed atrial fibrillation at rate of 71 with right bundle-branch block. LABORATORY DATA: Today's hemoglobin and hematocrit, white count and platelet count are within normal limit. Today's SMA-7 is entirely within normal limit. Two sets of troponins are negative. Abdomen and pelvis CT scan: No acute findings related to/accounting for the clinical presentation. ASSESSMENT: 1. Atypical chest pain. 2. Myocardial infarction is ruled out. 3. Hypertension. 4. Alzheimer's dementia. 5. Atrial fibrillation, which is a chronic one. RECOMMENDATIONS: Continue aspirin at 81 mg once a day, Namenda at 5 mg once a day, Aricept 10 mg once a day. Consider adding an oral anticoagulant agent for chronic atrial fibrillation as there is no contraindication. Rasta Caraballo MD
[2018-06-27 14:02] VITALS: BP 136/87; RESP 17; TEMP 98.7
== END 2018-06-27 15:30 | disposition home or self-care (01) ==
LOC: ED 10:45 → ERH 15:21 → 2RNO 22:45
PROVIDERS: ADMIT Family Medicine; ATTEND Family Medicine
DX: R07.89 Other chest pain (principal); I48.2 Chronic atrial fibrillation; G30.9 Alzheimer's disease, unspecified; F02.80 Dementia in other diseases classified elsewhere, unspecified severity, without behavioral disturbance, psychotic disturbance, mood disturbance, and anxiety; E78.5 Hyperlipidemia, unspecified; I11.9 Hypertensive heart disease without heart failure; K21.9 Gastro-esophageal reflux disease without esophagitis; K29.70 Gastritis, unspecified, without bleeding; K42.9 Umbilical hernia without obstruction or gangrene; K43.2 Incisional hernia without obstruction or gangrene; K44.9 Diaphragmatic hernia without obstruction or gangrene; K57.30 Diverticulosis of large intestine without perforation or abscess without bleeding; K59.09 Other constipation; N80.9 Endometriosis, unspecified; R32 Unspecified urinary incontinence; Z79.82 Long term (current) use of aspirin; Z87.01 Personal history of pneumonia (recurrent); Z87.440 Personal history of urinary (tract) infections; Z90.49 Acquired absence of other specified parts of digestive tract; H26.9 Unspecified cataract; F41.9 Anxiety disorder, unspecified
CPT/HCPCS: 36415; 71045; 74176; 74177; 76830; 80053; 83690; 84484; 85025; 85027; 85610; 85730; 93005; 99285; G0378; J7030; Q9967

== ENCOUNTER 2018-11-11 10:59 | Inpatient (IN) | payer MEDICARE, MEDICAID ==
[2018-11-11 11:22] VITALS: BMI 32.3
[2018-11-11] MEDS ORDERED: Sodium Chloride 0.9% 1,000 ML IV SCH (12:00)
[2018-11-11 12:03] LABS: BASO # 0.02 K/mm3 (0.0-2.0); BASO % 0.3 % (0.0-3.0); EOS # 0.2 (0.0-0.7); EOS % 2.5 % (1.5-5.0); HEMOGLOBIN 13.9 g/dL (12.0-16.0); LYMPH % 29.5 % (22.0-35.0); MEAN CELL VOLUME 100.9 fl (80.0-105.0); MEAN CORPUSCULAR HEMOGLOBIN 31.6 pg (25.0-35.0); MEAN CORPUSCULAR HGB CONC 31.3 g/dl (31.0-37.0); MEAN PLATELET VOLUME 11.1 fl (7.0-11.0); MONO # 0.6 (0.1-0.6); MONO % 8.2 % (1.0-6.0); RBC 4.4 10^6/uL (3.5-6.1); WHITE BLOOD COUNT 6.7 10^3/uL (4.5-11.0)
--- NOTE | 2018-11-11 12:07 | ED PDOC ---
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 Patient is nonverbal, and a advanced practice rn, ID# [id number], was used. reports difficulty moving her fingers, and denies using any medication to relieve symptoms. also reports patient has not being eating as much. He endorses patient last saw her PCP last month, where she was given vitamin B12, but denies any changes in patient's medications. He also denies any fevers, chills, pain or color changes in right hand, or any other complaints. PCP: Dr. Grady Time/Duration: < week Symptom Onset: Gradual Symptom Course: Unchanged Activities at Onset: Light Context: Home Past Medical History - Provider Review Nursing Documentation Reviewed: Yes - Infectious Disease Hx of Infectious Diseases: None - Tetanus Immunization Tetanus Immunization: Unknown - Cardiac Hx Cardiac Arrhythmia: Yes (Afib) Hx Hypertension: Yes - Pulmonary Hx Pneumonia: Yes - Neurological Hx Alzheimer's Disease: Yes - HEENT Hx Cataracts: Yes - Renal Hx Renal Disorder: No - Endocrine/Metabolic Hx Endocrine Disorders: No - Hematological/Oncological Hx Blood Transfusions: (UNKNOWN) - Integumentary Hx Dermatological Disorder: No - Musculoskeletal/Rheumatological Hx Falls: No - Gastrointestinal Hx Gastrointestinal Disorders: Yes (Gastritis) Hx Gastroesophageal Reflux: Yes Other/Comment: periumbical hernia - Genitourinary/Gynecological Hx Urinary Tract Infection: Yes - Psychiatric Hx Anxiety: Yes Hx Substance Use: No - Past Surgical History Past Surgical History: No Previous - Surgical History Hx Appendectomy: Yes Hx Cardiac Catheterization: Yes - Anesthesia Hx Anesthesia Reactions: No Hx Malignant Hyperthermia: No - Suicidal Assessment Feels Threatened In Home Enviroment: No Family/Social History - Physician Review Nursing Documentation Reviewed: Yes Family/Social History: Unknown Family HX Smoking Status: Never Smoked Hx Alcohol Use: No Hx Substance Use: No Hx Substance Use Treatment: No Allergies/Home Meds Allergies/Adverse Reactions: Allergies No Known Allergies Allergy (Verified 06/25/18 10:53) Home Medications: Home Meds Medication Instructions Recorded Confirmed Aspirin [[place] Aspirin] 81 mg PO DAILY 12/21/16 11/11/18 Cholecalciferol [Vitamin D 1000 IU] 2,000 iu PO DAILY 12/21/16 11/11/18 Donepezil [Aricept] 10 mg PO DAILY 12/21/16 11/11/18 Memantine [Namenda] 5 mg PO DAILY 12/21/16 11/11/18 Ondansetron HCl [Zofran] 4 mg PO PRN PRN 12/21/16 11/11/18 Bisoprolol Fumarate 5 mg PO DAILY 11/11/18 11/11/18 Mirtazapine [Remeron] 7.5 mg PO HS 11/11/18 11/11/18 Naproxen [EC-Naprosyn] 500 mg PO BID 11/11/18 11/11/18 Omeprazole 20 mg PO DAILY 11/11/18 11/11/18 risperiDONE [RisperDAL] 0.5 mg PO DAILY 11/11/18 11/11/18 Review of Systems - Physician Review All systems were reviewed & negative as marked: Yes - Review of Systems Constitutional: absent: Fevers Respiratory: absent: Cough Cardiovascular: absent: Chest Pain Musculoskeletal: absent: Back Pain, Neck Pain Neurological: absent: Headache, Dizziness Endocrine: absent: Diaphoresis Physical Exam Vital Signs Reviewed: Yes Vital Signs Temp Pulse Resp BP Pulse Ox 11/11/18 11:10 97.3 F L 57 L 16 120/59 L 98 Temperature: Hypothermic Blood Pressure: Hypotensive Pulse: Bradycardic Respiratory Rate: Normal Appearance: Positive for: Well-Appearing, Non-Toxic, Comfortable, Other (Non verbal) Pain Distress: None Mental Status: Positive for: Alert and Oriented X 3 Finger Stick Blood Glucose: 90 - Systems Exam Head: Present: Atraumatic, Normocephalic Pupils: Present: PERRL Extroacular Muscles: Present: EOMI Conjunctiva: Present: Normal Mouth: Present: Dry Neck: Present: Normal Range of Motion Respiratory/Chest: Present: Clear to Auscultation, Good Air Exchange. No: Respiratory Distress, Accessory Muscle Use Cardiovascular: Present: Regular Rate and Rhythm, Normal S1, S2. No: Murmurs Abdomen: Present: Distention. 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 No: Cyanosis, Edema Lower Extremity: Present: Normal Inspection. No: Edema Neurological: Present: GCS=15, Speech Normal Skin: Present: Warm, Dry, Normal Color. No: Rashes Psychiatric: Present: Alert, Oriented x 3, Normal Insight, Normal Concentration Medical Decision Making ED Course and Treatment: 11/11/18 12:07 Impression: 78 year old female presents to the emergency department brought in by her for right hand swelling since 4 days. Differential Diagnosis included but are not limited to: Plan: -- EKG -- Basic labs -- Chest X-ray -- Iv fluids -- Blood culture --Urine culture -- Lasix -- SOLU-Medrol -- Reassess and disposition Prior Visits: Notes and results from previous visits were reviewed. Progress Notes: 11/11/18 12:[address] Hamilton,who is aware and accepts with and Dr. Barrientos in consult. - RAD Interpretation Narrative RAD Interpretations (Text): 11/11/18 16:55 Chest X-ray shows: No active pulmonary disease. Extremity Ultra sound shows: 1. No sonographic evidence for deep venous thrombosis in the visualized segments of the right upper extremity. 2. Limited study. Radiology Orders: 11/11/18 11:48 CHEST PORTABLE [RAD] Stat 11/11/18 11:49 DUPLEX UPPER EXTRM VEIN RIGHT [US] Stat Brush Cutter: Radiologist - EKG Interpretation EKG Interpretation (Text): 11/11/18 18:17 EKG reviewed, shows: Irregularly irregular rhythm at 56 bpm, RBBB. Interpreted by ED Physician: Yes - Medication Orders Current Medication Orders: Sodium Chloride (Sodium Chloride 0.9%) 1,000 mls @ 100 mls/hr IV .Q10H [facility] - Scribe Statement The provider has reviewed the documentation as recorded by the Cruz Romero Provider Scribe Attestation: All medical record entries made by the Scribe were at my direction and personally dictated by me. I have reviewed the chart and agree that the record accurately reflects my personal performance of the history, physical exam, medical decision making, and the department course for this patient. I have also personally directed, reviewed, and agree with the discharge instructions and disposition. Disposition/Present on Arrival - Present on Arrival History of DVT/PE: No History of Uncontrolled Diabetes: No Urinary Catheter: No History of Decub. Ulcer: No History Surgical Site Infection Following: None - Disposition Disposition: HOSPITALIZED
[2018-11-11 12:13] LABS: ALB/GLOB RATIO 0.9 (1.1-1.8); ALBUMIN 3.3 g/dL (3.0-4.8); BLOOD UREA NITROGEN 55 mg/dL (7-21); CALCIUM 9.5 mg/dL (8.4-10.5); GFR NON-AFRICAN AMERICAN > 60; LIPASE 44 U/L (23-300)
[2018-11-11 12:19] LABS: ALT/SGPT 15 U/L (7-56); AST/SGOT 32 U/L (14-36)
[2018-11-11 12:25] LABS: B-TYPE NATRIURETIC PEPTIDE 2860 pg/mL (0-450); TROPONIN I < 0.01 ng/mL
[2018-11-11 13:49] LABS: URINE BILIRUBIN NEGATIVE (NEGATIVE); URINE BLOOD NEGATIVE (NEGATIVE); URINE GLUCOSE (UA) NEGATIVE (NEGATIVE); URINE LEUKOCYTE ESTERASE LARGE Leu/uL (NEGATIVE); URINE PROTEIN NEGATIVE mg/dL (<30 mg/dL); URINE UROBILINOGEN 0.2 E.U./dL (<1 E.U./dL)
[2018-11-11 13:50] LABS: URINE APPEARANCE TURBID (CLEAR); URINE COLOR YELLOW (YELLOW)
[2018-11-11 13:55] LABS: URINE BACTERIA MANY /hpf; URINE WBC TNTC /hpf (0-6)
--- NOTE | 2018-11-11 14:43 | RAD ---
Date of service: 11/11/2018 HISTORY: weakness COMPARISON: 06/25/2018 FINDINGS: LUNGS: The lungs are well inflated and clear. There are chronic changes in the right lower lobe. PLEURA: No pleural effusions or pneumothorax. CARDIOVASCULAR: There is severe cardiomegaly. No aortic atherosclerotic calcifications present. OSSEOUS STRUCTURES: Within normal limits for the patient's age. VISUALIZED UPPER ABDOMEN: Normal. OTHER FINDINGS: None. IMPRESSION: No active pulmonary disease.
--- NOTE | 2018-11-11 16:12 | US ---
PROCEDURE: Right upper extremity venous US CLINICAL HISTORY: Arm pain and swelling Evaluate for deep venous thrombosis. PHYSICIAN(S): Maykel Celestin M.D FINDINGS: The visualized rightinternal jugular vein is sonographically normal and compressible. No evidence of obstruction or thrombus is seen. The visualized segments of the right subclavian vein are patent with normal waveforms. No sonographic evidence of obstruction or thrombosis is seen. The visualized deep venous system of the proximal right upper extremity is sonographically normal and compressible. IMPRESSION: 1. No sonographic evidence for deep venous thrombosis in the visualized segments of the right upper extremity. 2. Limited study.
--- NOTE | 2018-11-11 19:23 | CARD ---
APPROVED REPORT Date of service: 11/11/2018 EKG Measurement Heart [id number] <Conclusion> Atrial fibrillation with slow ventricular response Right bundle branch block Abnormal ECG
[2018-11-11] MEDS ORDERED: Pneumococcal 23-Valent Vaccine IM ONE (20:47)
[2018-11-11] MEDS ORDERED: Influenza Vaccine 60 mcg/0.5 mL SYR (4YR UP) IM ONE (20:47)
[2018-11-11] MEDS: Cefepime 1gm in NS 100ml 1 GM/100 ML BAG IVPB SCH (21:57)
[2018-11-11] MEDS ORDERED: Piperacillin/Tazobact 3.375 gm 100 ML IVPB SCH (22:00)
[2018-11-11] MEDS: Vancomycin 1gm in NS 250ml 1 GM/250 ML BAG IVPB SCH (22:00)
--- NOTE | 2018-11-12 01:25 | HP ---
DATE OF EXAM: 11/11/2018HISTORY OF PRESENT ILLNESS: I was called to the ER to admit her to the hospital by the emergency room doctor. She is a 76-year-old female with past medical history for Alzheimer's, hypertension, pneumonia, chronic atrial fibrillation, who has a right hand swelling for 4 days. She is nonverbal. is present. Difficulty for her to move the fingers of her hand. She is at ease, not much. She had a vitamin B12 shot. PAST MEDICAL HISTORY: She has hypertension history, she has history of pneumonia, Alzheimer's disease, cataracts. She had gastritis and GERD with periumbilical hernia, urinary tract infections. She has anxiety. PAST SURGICAL HISTORY: She has had a previous surgery of appendicitis and appendectomy. She had cardiac catheterization, I am not sure of the history. SOCIAL HISTORY: Nonsmoker. Nondrinker. No drugs. ALLERGIES: NO KNOWN DRUG ALLERGIES. MEDICATIONS: She takes aspirin, vitamin D, Aricept, Namenda, Zofran, Bystolic, Remeron, ampicillin, omeprazole, and Risperdal. REVIEW OF SYSTEMS: No fevers, no cough. No chest pain. No back pain, no neck pain. No headaches, no dizziness. The right hand is inflamed, red and tender. PHYSICAL EXAMINATION GENERAL: She is well-appearing, nontoxic, comfortable, nonverbal. Alert and oriented x3. VITAL SIGNS: She has a 97.3 temperature, 17 respiratory rate, 120/59 blood pressure, 98% O2 sat. HEENT: Head is atraumatic and normocephalic. Extraocular muscles are intact. Pupils equally reactive to light. Throat is dry. NECK: Supple. Good range of motion. HEART: Regular rate. Normal S1 and S2. LUNGS: Decreased breath sounds, but clear to auscultation, poor inspiration. No wheezes, rhonchi, or rales. ABDOMEN: Soft, nontender. Positive bowel sounds. No guarding. No rebound. No CVA tenderness. EXTREMITIES: Swelling for the right arm and hand. No edema in lower extremities. The right hand is swollen and inflamed. NEUROLOGIC: GCS is 15. Cranial nerves II through XII grossly intact. LABORATORY DATA: Glucose is 90, a little bradycardiac. She had an ultrasound, which showed no deep vein thrombosis from the right upper extremity. EKG shows AFib of 56, right bundle-branch block. She also had a chest x-ray, which was clear. She has a 6.7 white count, 13.9 hemoglobin, 44.4 hematocrit with 250 platelets. A 144 sodium, potassium 4.6, BUN 55, creatinine 0.9, GFR is greater than 60, sugar is 96, calcium is 9.5, total bili is 0.4, AST is 32, ALT is 59, alk phos is 93. Troponin I is less than 0.1, and BMP is very high 2160, total protein is 6.9. Urine showed positive nitrites, many bacteria, too numerous to count white count. ASSESSMENT: She is here with right hand cellulitis, urinary tract infections, congestive heart failure and atrial fibrillation. PLAN: She will have consults with Dr. Burgos for the congestive heart failure and the atrial fibrillation, Infectious Disease. She will be put on Zosyn. She was given Lasix 40 mg IV daily. We will check her labs tomorrow. Chris Hamilton DO
[2018-11-12] MEDS: Pantoprazole 20 mg EC Tab PO SCH (05:40)
[2018-11-12 07:12] LABS: HEMOGLOBIN 14.1 g/dL (12.0-16.0); MEAN CELL VOLUME 98.5 fl (80.0-105.0); MEAN CORPUSCULAR HEMOGLOBIN 30.6 pg (25.0-35.0); MEAN CORPUSCULAR HGB CONC 31.1 g/dl (31.0-37.0); MEAN PLATELET VOLUME 10.7 fl (7.0-11.0); RBC 4.61 10^6/uL (3.5-6.1); RED CELL DISTRIBUTION WIDTH 13.8 % (11.5-14.5); WHITE BLOOD COUNT 6.3 10^3/uL (4.5-11.0)
[2018-11-12 07:51] LABS: ALB/GLOB RATIO 0.9 (1.1-1.8); ALBUMIN 3.7 g/dL (3.0-4.8); ALT/SGPT 17 U/L (7-56); AST/SGOT 31 U/L (14-36); BLOOD UREA NITROGEN 50 mg/dL (7-21); CALCIUM 9.4 mg/dL (8.4-10.5); GFR NON-AFRICAN AMERICAN > 60
--- NOTE | 2018-11-12 10:09 | CP.PCM.CON ---
<Grupo Goel - Last Filed: 11/12/18 10:04> History of Present Illness - History of Present Illness History of Present Illness: Grupo Goel D.O. PGY-3, Internal Medicine Resident, Infectious Disease Consultation Note 78-year-old female with a past medical history of Alzheimer's dementia, hypertension, atrial fibrillation who presented to the emergency department for issues with right hand swelling for approximately 4 days. Infectious disease consultation was requested for weakness. Patient was seen and examined at bedside. Patient is nonverbal. Patient does seem to understand Swedish and cannot and shake her head to answer very basic questions. At this time appears comfortable. Has no acute complaints. Majority of history obtained from review of chart. Patient's had stated that the patient was having some swelling of the right hand and difficulty with moving the fingers. This is been going on for approximately 4 days. Review of Systems - Review of Systems Systems not reviewed;Unavailable: Dementia Past Patient History - Infectious Disease Hx of Infectious Diseases: None - Tetanus Immunizations Tetanus Immunization: Unknown - Past Social History Smoking Status: Never Smoked - CARDIAC Hx Cardiac Disorders: Yes Hx Cardia Arrhythmia: Yes (Afib) Hx Hypertension: Yes - PULMONARY Hx Respiratory Disorders: Yes Hx Pneumonia: Yes - NEUROLOGICAL Hx Neurological Disorder: Yes Hx Alzheimer's Disease: Yes Hx Dementia: Yes - HEENT Hx HEENT Problems: Yes Hx Cataracts: Yes - RENAL Hx Chronic Kidney Disease: No - ENDOCRINE/METABOLIC Hx Endocrine Disorders: No - HEMATOLOGICAL/ONCOLOGICAL Hx Blood Disorders: No - INTEGUMENTARY Hx Dermatological Problems: No - MUSCULOSKELETAL/RHEUMATOLOGICAL Hx Musculoskeletal Disorders: No Hx Back Pain: Yes Hx Falls: Yes - GASTROINTESTINAL Hx Gastrointestinal Disorders: Yes (Gastritis,HEMORRHOIDS) Hx Gastroesophageal Reflux: Yes Other/Comment: periumbical hernia - GENITOURINARY/GYNECOLOGICAL Hx Genitourinary Disorders: Yes Hx Incontinence: Yes Hx Urinary Tract Infection: Yes - PSYCHIATRIC Hx Psychophysiologic Disorder: Yes Hx Anxiety: Yes Hx Substance Use: No - SURGICAL HISTORY Hx Surgeries: Yes Hx Appendectomy: Yes Hx Cardiac Catheterization: Yes - ANESTHESIA Hx Anesthesia Reactions: No Hx Malignant Hyperthermia: No Meds Allergies/Adverse Reactions: Allergies Allergy/AdvReac Type Severity Reaction Status Date / Time No Known Allergies Allergy Verified 11/11/18 19:12 - Medications Medications: Current Medications Aspirin (Ecotrin) 81 mg PO DAILY [facility] Cholecalciferol (Vitamin D) 2,000 intlu PO DAILY [facility] Donepezil HCl (Aricept) 10 mg PO DAILY [facility] Furosemide (Lasix) 40 mg IVP DAILY [facility] Cefepime HCl (Maxipime 1gm) 1 gm in 100 mls @ 100 mls/hr IVPB Q12 [facility]; Protocol Stop: 11/20/18 22:01 Last Admin: 11/11/18 21:57 Dose: 100 mls/hr Vancomycin HCl (Vancomycin 1gm) 1 gm in 250 mls @ 167 mls/hr IVPB Q12H [facility]; Protocol Stop: 11/20/18 21:46 Last Admin: 11/11/18 22:00 Dose: 167 mls/hr Memantine (Namenda) 5 mg PO DAILY [facility] Mirtazapine (Remeron) 7.5 mg PO HS [facility] Last Admin: 11/11/18 21:59 Dose: 7.5 mg Non-Formulary Medication (Bisoprolol Fumarate [Bisoprolol Fumarate]) 5 mg PO DAILY [facility] Ondansetron HCl (Zofran Tab) 4 mg PO Q6H PRN PRN Reason: Nausea/Vomiting Pantoprazole Sodium (Protonix Ec Tab) 20 mg PO 0600 [facility] Last Admin: 11/12/18 05:40 Dose: 20 mg Risperidone (Risperdal Tab) 0.5 mg PO DAILY [facility]; Protocol Physical Exam - Constitutional Appears: Non-toxic, Chronically Ill - Head Exam Head Exam: ATRAUMATIC, NORMOCEPHALIC - Eye Exam Eye Exam: EOMI. absent: Scleral icterus - ENT Exam ENT Exam: Mucous Membranes Moist - Neck Exam Neck exam: Positive for: Normal Inspection - Respiratory Exam Respiratory Exam: Clear to Auscultation Bilateral. absent: Rales, Rhonchi, Wheezes - Cardiovascular Exam Cardiovascular Exam: RRR, +S1, +S2 - GI/Abdominal Exam GI & Abdominal Exam: Soft. absent: Distended, Tenderness - Extremities Exam Extremities exam: Negative for: calf tenderness, pedal edema Additional comments: right hand mildly edematous with mild discoloration compared to left, nontender - Neurological Exam Neurological exam: Alert - Skin Skin Exam: Dry, Warm Results - Vital Signs Recent Vital Signs: Last Vital Signs Temp 97.4 F L 11/12/18 06:00 Pulse 93 H 11/12/18 06:00 Resp 16 11/12/18 06:00 BP 133/86 11/12/18 06:00 Pulse Ox 95 11/12/18 06:00 - Labs Result Diagrams: 11/12/18 06:45 11/12/18 06:45 Labs: Laboratory Results - last 24 hr 11/11/18 11/11/18 11/11/18 11:34 11:34 13:31 WBC 6.7 D RBC 4.40 Hgb 13.9 Hct 44.4 MCV 100.9 D MCH 31.6 MCHC 31.3 RDW 14.0 Plt Count 250 MPV 11.1 H Neut % (Auto) 59.5 Lymph % (Auto) 29.5 Crow[place] % (Auto) 8.2 H Eos % (Auto) 2.5 Baso % (Auto) 0.3 Lymph # (Auto) 2.0 [place] # (Auto) 0.6 Eos # (Auto) 0.2 Baso # (Auto) 0.02 Absolute Neuts (auto) 4.00 Sodium 144 Potassium 4.6 Chloride 110 H Carbon Dioxide 28 Anion Gap 11 BUN 55 H Creatinine 0.9 Est GFR ( Amer) > 60 Est GFR (Non-Af Amer) > 60 Random Glucose 96 Calcium 9.5 Total Bilirubin 0.4 AST 32 ALT 15 Alkaline Phosphatase 93 Troponin I < 0.01 NT-Pro-B Natriuret Pep 2860 H Total Protein 6.9 Albumin 3.3 Globulin 3.6 Albumin/Globulin Ratio 0.9 L Lipase 44 Urine Color Yellow Urine Appearance Turbid Urine pH 6.0 Ur Specific [place] 1.020 Urine Protein Negative Urine Glucose (UA) Negative Urine Ketones Negative Urine Blood Negative Urine Nitrate Positive H Urine Bilirubin Negative Urine Urobilinogen 0.2 Ur Leukocyte Esterase Large H Urine RBC None Urine WBC Tntc H Urine Bacteria Many 11/12/18 11/12/18 06:45 06:45 WBC 6.3 RBC 4.61 Hgb 14.1 Hct 45.4 MCV 98.5 MCH 30.6 MCHC 31.1 RDW 13.8 Plt Count 382 MPV 10.7 Neut % (Auto) Lymph % (Auto) [place] % (Auto) Eos % (Auto) Baso % (Auto) Lymph # (Auto) [place] # (Auto) Eos # (Auto) Baso # (Auto) Absolute Neuts (auto) Sodium 146 Potassium 4.4 Chloride 106 Carbon Dioxide 31 Anion Gap 14 BUN 50 H Creatinine 0.8 Est GFR ( Amer) > 60 Est GFR (Non-Af Amer) > 60 Random Glucose 135 H Calcium 9.4 Total Bilirubin 0.4 AST 31 ALT 17 Alkaline Phosphatase 112 Troponin I NT-Pro-B Natriuret Pep Total Protein 7.8 Albumin 3.7 Globulin 4.0 Albumin/Globulin Ratio 0.9 L Lipase Urine Color Urine Appearance Urine pH Ur Specific [place] Urine Protein Urine Glucose (UA) Urine Ketones Urine Blood Urine Nitrate Urine Bilirubin Urine Urobilinogen Ur Leukocyte Esterase Urine RBC Urine WBC Urine Bacteria Assessment & Plan - Assessment and Plan (Free Text) Assessment: 78-year-old female with a past medical history of Alzheimer's dementia, hypertension, atrial fibrillation who presented to the emergency department for issues with right hand swelling for approximately 4 days. Infectious disease consultation was requested for weakness. Plan: Urinary tract infection Right hand swelling Alzheimer's dementia Hypertension Atrial fibrillation Urine revealed positive nitrites, leuk esterase and too many to count white blood cells with many bacteria Afebrile No leukocytosis No tachycardia or tachypnea Appears comfortable Empirically on cefepime and vancomycin Urine cultures ordered Blood cultures ordered Chest x-ray did not appear to reveal any active disease per radiology Extremity ultrasound did not reveal the presence of DVT Will get ESR and CRP We will follow alongside you Patient was seen and examined and case to be discussed with attending physician Thank you for the pleasure participating in the care of this interesting patient - Date & Time Date: 11/12/18 Time: 07:25 <Oscar Arthur - Last Filed: 11/12/18 22:25> Meds - Medications Medications: Current Medications Aspirin (Ecotrin) 81 mg PO DAILY [facility] Last Admin: 11/12/18 10:55 Dose: 81 mg Cholecalciferol (Vitamin D) 2,000 intlu PO DAILY [facility] Last Admin: 11/12/18 11:01 Dose: 2,000 intlu Donepezil HCl (Aricept) 10 mg PO DAILY [facility] Last Admin: 11/12/18 10:55 Dose: 10 mg Furosemide (Lasix) 40 mg IVP DAILY [facility] Last Admin: 11/12/18 10:56 Dose: 40 mg Cefepime HCl (Maxipime 1gm) 1 gm in 100 mls @ 100 mls/hr IVPB Q12 [facility]; Protocol Stop: 11/20/18 22:01 Last Admin: 03/27/19 22:12 Dose: 100 mls/hr Vancomycin HCl (Vancomycin 1gm) 1 gm in 250 mls @ 167 mls/hr IVPB Q12H [facility]; Pr otocol Stop: 11/20/18 21:46 Last Admin: 11/12/18 22:13 Dose: 167 mls/hr Memantine (Namenda) 5 mg PO DAILY [facility] Last Admin: 11/12/18 10:56 Dose: 5 mg Mirtazapine (Remeron) 7.5 mg PO HS [facility] Last Admin: 11/12/18 22:13 Dose: 7.5 mg Non-Formulary Medication (Bisoprolol Fumarate [Bisoprolol Fumarate]) 5 mg PO DAILY [facility] Last Admin: 11/12/18 10:50 Dose: Not Given Ondansetron HCl (Zofran Tab) 4 mg PO Q6H PRN PRN Reason: Nausea/Vomiting Pantoprazole Sodium (Protonix Ec Tab) 20 mg PO 0600 [facility] Last Admin: 11/12/18 05:40 Dose: 20 mg Risperidone (Risperdal Tab) 0.5 mg PO DAILY [facility]; Protocol Last Admin: 11/12/18 10:57 Dose: 0.5 mg Results - Vital Signs Recent Vital Signs: Last Vital Signs Temp 97.4 F L 11/12/18 06:00 Pulse 75 11/12/18 18:00 Resp 16 11/12/18 06:00 BP 133/86 11/12/18 10:56 Pulse Ox 95 11/12/18 06:00 - Labs Result Diagrams: 11/12/18 06:45 11/12/18 06:45 Labs: Laboratory Results - last 24 hr 11/12/18 11/12/18 06:45 06:45 WBC 6.3 RBC 4.61 Hgb 14.1 Hct 45.4 MCV 98.5 MCH 30.6 MCHC 31.1 RDW 13.8 Plt Count 382 MPV 10.7 Sodium 146 Potassium 4.4 Chloride 106 Carbon Dioxide 31 Anion Gap 14 BUN 50 H Creatinine 0.8 Est GFR ( Amer) > 60 Est GFR (Non-Af Amer) > 60 Random Glucose 135 H Calcium 9.4 Total Bilirubin 0.4 AST 31 ALT 17 Alkaline Phosphatase 112 Total Protein 7.8 Albumin 3.7 Globulin 4.0 Albumin/Globulin Ratio 0.9 L Assessment & Plan - Assessment and Plan (Free Text) Plan: Infectious Diseases Attending Physician Attestation Patient seen and examined at bedside, discussed with emergency medical service coordinator. I have reviewed the HPI, ROS, Family, Medical, Social and personal histories, physical examination findings. I have also reviewed the pertinent labs and diagnostic imaging. I have fully participiated in the care of this patient. I agree with the above findings, assessment, plan. In addition, we have started Vancomycin and Cefepime for patient with probable UTI. Follow up urine, blood cx and will monitor clinically.
[2018-11-12] MEDS: BISOPROLOL FUMARATE 5 MG PO SCH (10:50)
[2018-11-12] MEDS: Cefepime 1gm in NS 100ml 1 GM/100 ML BAG IVPB SCH ×2 (10:56→22:12)
[2018-11-12] MEDS: Cholecalciferol 1,000 INTLU TAB PO SCH (11:01)
[2018-11-12] MEDS: Vancomycin 1gm in NS 250ml 1 GM/250 ML BAG IVPB SCH ×2 (11:06→22:13)
--- NOTE | 2018-11-12 13:23 | PN ---
DATE: 11/12/2018 SUBJECTIVE: She is resting comfortably in bed. She is looking at me. She is smiling, nonverbal. No apparent distress, easy breathing. PHYSICAL EXAMINATION: VITAL SIGNS: She has 98.5 temperature, 71 pulse, 148/76 blood pressure, 18 respiratory rate, 95% sat on room air. HEAD: Atraumatic, normocephalic. She is smiling. Mouth is moist. NECK: Supple. HEART: Regular rate. LUNGS: Decreased breath sounds, but clear. ABDOMEN: Soft. EXTREMITIES: The right hand that was swollen yesterday is much better today. MEDICATIONS: She is currently on Aricept, Bystolic, Ecotrin, Lasix IV, Maxipime IV, Namenda, Protonix, Remeron, Risperdal, vancomycin IV, vitamin D, and Zofran. LABORATORY DATA: She has sodium 146, potassium 4.4, BUN is better at 50, Creatinine is better at 0.8, GFR is greater than 60, sugar is 135, calcium is 9.4. Total bili is 0.4, AST is 31, ALT is 17, alk phos 112, total protein 7.8. She has 6.3 white count, 40.1 hemoglobin, 45.4 hematocrit with 382 platelets. ASSESSMENT AND PLAN: She is comfortable in bed. She has consults for Cardiology for possible fluid overload and Infectious Disease for the urinary tract infection and right hand cellulitis. Overall, she looks better than when she came in. We are diuresing her and giving her antibiotics. We will continue treatment and care. I discussed with the nurse, check her labs tomorrow, and wait for consult. Chris Hamilton DO
--- NOTE | 2018-11-12 19:33 | CON ---
DATE OF CONSULTATION: 11/12/2018 CARDIOLOGY CONSULTATION HISTORY: The patient is a 78-year-old woman, who presents with swelling of the right upper extremity. The patient is nonverbal and has a past medical history of all times, hypertension and chronic atrial fibrillation. She does not appear to be on anticoagulation at home. The reason is unclear. There are no available resources at this time to find out whether there are contraindications to anticoagulation. There is no evidence of distress. REVIEW OF SYSTEMS: Not available. PHYSICAL EXAMINATION: Vital Signs: Blood pressure 133/86, heart rate is in the 90s. NECK: Negative JVD. LUNGS: Without rales. CARDIAC: Heart rate S1, S2. EXTREMITIES: Without edema. EKG shows atrial fibrillation with nonspecific ST-T changes. Glucose is 135. Hemoglobin is 14.1. IMPRESSION: 1. Right upper extremity swelling. 2. History of chronic atrial fibrillation, not on anticoagulation. 3. Hypertension. 4. Alzheimer's disease. 5. Infection. PLAN: Given these findings, it is not clear why the patient is not on anticoagulation. We will make an attempt to call her doctors in [place], we will obtain an echocardiogram to evaluate LV function. Maykel Burgos MD
--- NOTE | 2018-11-12 22:29 | CARD ---
APPROVED REPORT Date of service: 11/12/2018 EXAM: Two-dimensional and M-mode echocardiogram with Doppler and color Doppler. INDICATION Congestive Heart Failure 2D DIMENSIONS Left Atrium (2D)4.7 (1.6-4.0cm)IVSd1.2 (0.7-1.1cm) LVDd3.6 (3.9-5.9cm)PWd1.3 (0.7-1.1cm) LVDs2.5 (2.5-4.0cm)FS (%) 31.6 % LVEF (%)60.5 (>50%) M-Mode DIMENSIONS Aortic Root3.10 (2.2-3.7cm)Aortic Cusp Exc.1.50 (1.5-2.0cm) Aortic Valve AoV Peak Lzlgbeco360.0cm/Maged Peak GR.7mmHg Mitral Valve MV E Farodgcr26.4cm/sMV A Uxibvhnu96.1cm/sE/A ratio3.1 TDI Lateral E' Peak V10.50cm/sMedial E' Peak V6.92cm/sE/Lateral E'8.3 E/Medial E'12.6 Pulmonary Valve PV Peak Arhycmok12.4cm/sPV Peak Grad.3mmHg Tricuspid Valve TR Peak Gbrgxvvr565no/sRAP [id number] Peak Gr.40mmHg [id number] LEFT VENTRICLE The left ventricle is normal size. There is borderline concentric left ventricular hypertrophy. The left ventricular function is normal. The left ventricular ejection fraction is within the normal range. There is normal LV segmental wall motion. Transmitral Doppler flow pattern is Grade II-pseudonormal filling dynamics. RIGHT VENTRICLE The right ventricle is normal size. There is normal right ventricular wall thickness. The right ventricular systolic function is normal. ATRIA The left atrium is mildly dilated. The right atrium is mildly dilated. AORTIC VALVE The aortic valve is moderately thickened. There is trace aortic regurgitation. There is no aortic valvular stenosis. MITRAL VALVE The mitral valve is mildly thickened. Mitral regurgitation is mild. There is no mitral valve stenosis. TRICUSPID VALVE There is moderate tricuspid regurgitation. There is moderate pulmonary hypertension. PULMONIC VALVE There is mild pulmonic valvular regurgitation. GREAT VESSELS The aortic root is normal in size. The IVC is normal in size and collapses >50% with inspiration. <Conclusion> There is borderline concentric left ventricular hypertrophy. The left ventricular function is normal. The left ventricular ejection fraction is within the normal range. There is normal LV segmental wall motion. Transmitral Doppler flow pattern is Grade II-pseudonormal filling dynamics. Mitral regurgitation is mild. There is moderate tricuspid regurgitation. There is moderate pulmonary hypertension. There is mild pulmonic valvular regurgitation.
[2018-11-13] MEDS: Pantoprazole 20 mg EC Tab PO SCH (05:45)
[2018-11-13 06:52] LABS: HEMOGLOBIN 13.4 g/dL (12.0-16.0); MEAN CORPUSCULAR HGB CONC 33.4 g/dl (31.0-37.0); RBC 4.32 10^6/uL (3.5-6.1); RED CELL DISTRIBUTION WIDTH 13.9 % (11.5-14.5); WHITE BLOOD COUNT 6.9 10^3/uL (4.5-11.0)
[2018-11-13 07:20] LABS: ALB/GLOB RATIO 0.9 (1.1-1.8); ALBUMIN 3.2 g/dL (3.0-4.8); ALT/SGPT 24 U/L (7-56); AST/SGOT 36 U/L (14-36); BLOOD UREA NITROGEN 48 mg/dL (7-21); CALCIUM 8.7 mg/dL (8.4-10.5); GFR NON-AFRICAN AMERICAN 54
[2018-11-13 09:00] LABS: MEAN CELL VOLUME 98.8 fl (80.0-105.0)
--- NOTE | 2018-11-13 09:47 | HP ---
DATE OF EXAM: 11/13/2018 HISTORY OF PRESENT ILLNESS: I saw her in her bed. She is more alert, smiling, much brighter than when she came in, that is basically her baseline. She is on IV antibiotics. She has a few things going on. She had a little bit of CHF, UTI. She is very weak. She has gram-negative rods in her urine culture. PHYSICAL EXAMINATION GENERAL: She is nonverbal, but she is smiling nicely. VITAL SIGNS: A 97.4 temperature, 65 pulse, 133/86 blood pressure, 16 respiratory rate, and 95% O2 sat on room air. HEENT: Head is atraumatic, normocephalic. CARDIOPULMONARY: Heart regular rate. LUNGS: With decreased breath sounds. ABDOMEN: No edema. NEUROLOGIC: Weak, at her baseline. She is bedridden. MEDICATIONS: She is currently on Aricept, Bystolic, Ecotrin, Lasix IV, Maxipime, Namenda, Protonix, Remeron, Risperdal, vancomycin IV, vitamin D and Zofran. LABORATORY DATA: She has a 6.9 white count, 30.4 hemoglobin, 40.1 hematocrit with 302 platelets. A 144 sodium, potassium 4, BUN 48, creatinine 1. GFR is 54, sugar is 89, calcium is 8.7, total bili is 0.3, AST is 36, ALT is 24, alk phos 84. Troponin I is less than 0.01. The BNP was very high at 2160, total protein 6.7. IMPRESSION AND PLAN: She is being seen by Infectious Disease. Start her on antibiotics for the right hand cellulitis, swelling of the urinary tract infection. From when she came in to now there is definitely an improvement in her smile, her responsiveness. She is also being seen by Cardiology for the elevated BNP, she is on IV Lasix. She has a history of atrial fibrillation and on anticoagulation. We will continue with aggressive treatment and care. Chris Hamilton DO [facility]yes
[2018-11-13] MEDS: Cefepime 1gm in NS 100ml 1 GM/100 ML BAG IVPB SCH ×2 (09:56→21:27)
[2018-11-13] MEDS: Cholecalciferol 1,000 INTLU TAB PO SCH (09:56)
[2018-11-13] MEDS: BISOPROLOL FUMARATE 5 MG PO SCH (09:57)
[2018-11-13] MEDS: Vancomycin 1gm in NS 250ml 1 GM/250 ML BAG IVPB SCH (10:00)
--- NOTE | 2018-11-13 11:01 | CP.PCM.PCO ---
Physician Communication Note - Physician Communication Note Physician Communication Note: urine sensitivities pending, continue antibiotics as per ID
--- NOTE | 2018-11-13 13:44 | PN ---
DATE: 11/13/2018 CARDIOLOGY FOLLOWUP SUBJECTIVE: The patient is in no acute distress. PHYSICAL EXAMINATION VITAL SIGNS: Stable, heart rate is stable. NECK: Negative JVD. LUNGS: Without rales. HEART: Reveals S1 and S2. EXTREMITIES: Without change. LABORATORY DATA: Reveal hemoglobin is stable. Echocardiogram reveals good LV function with dilated left atrium and moderate pulmonary hypertension. IMPRESSION: 1. Chronic atrial fibrillation. 2. Dilated left atrium. 3. Moderate pulmonary hypertension. 4. Alzheimer's disease. 5. Systemic hypertension. 6. Urinary tract infection. Given these findings, there appears to be no contraindications to anticoagulation, would place the patient on Eliquis 2.5 b.i.d. to reduce the chance of a thromboembolic phenomenon. Maykel Burgos MD
--- NOTE | 2018-11-13 15:16 | CP.PCM.PN ---
<Grupo Goel - Last Filed: 11/13/18 15:12> Subjective - Date & Time of Evaluation Date of Evaluation: 11/13/18 Time of Evaluation: 08:55 - Subjective Subjective: Grupo Goel D.O. PGY-3, Internal Medicine Resident, Infectious Disease Progress Note 78-year-old female with a past medical history of Alzheimer's dementia, hypertension, atrial fibrillation who presented to the emergency department for issues with right hand swelling for approximately 4 days. Infectious disease consultation was requested for weakness. Patient was seen and examined at bedside. at bedside helping with breakfast. Appears comfortable and in better spirits. No active complaints. Objective - Vital Signs/Intake and Output Vital Signs (last 24 hours): Temp Pulse Resp BP Pulse Ox 97.4 F L 59 L 16 148/81 95 11/12/18 06:00 11/13/18 10:00 11/12/18 06:00 11/13/18 09:57 11/12/18 06:00 Intake and Output: 11/13/18 11/13/18 06:59 18:59 Intake Total 240 Balance 240 - Medications Medications: Current Medications Apixaban (Eliquis) 2.5 mg PO BID [facility]; Protocol Last Admin: 11/13/18 13:27 Dose: 2.5 mg Aspirin (Ecotrin) 81 mg PO DAILY [facility] Last Admin: 11/13/18 09:56 Dose: 81 mg Cholecalciferol (Vitamin D) 2,000 intlu PO DAILY [facility] Last Admin: 11/13/18 09:56 Dose: 2,000 intlu Donepezil HCl (Aricept) 10 mg PO DAILY [facility] Last Admin: 11/13/18 09:56 Dose: 10 mg Furosemide (Lasix) 40 mg IVP DAILY [facility] Last Admin: 11/13/18 09:57 Dose: 40 mg Cefepime HCl (Maxipime 1gm) 1 gm in 100 mls @ 100 mls/hr IVPB Q12 [facility]; Protocol Stop: 11/20/18 22:01 Last Admin: 11/13/18 09:56 Dose: 100 mls/hr Memantine (Namenda) 5 mg PO DAILY [facility] Last Admin: 11/13/18 09:56 Dose: 5 mg Mirtazapine (Remeron) 7.5 mg PO HS [facility] Last Admin: 11/12/18 22:13 Dose: 7.5 mg Non-Formulary Medication (Bisoprolol Fumarate [Bisoprolol Fumarate]) 5 mg PO DAILY [facility] Last Admin: 11/13/18 09:57 Dose: Not Given Ondansetron HCl (Zofran Tab) 4 mg PO Q6H PRN PRN Reason: Nausea/Vomiting Pantoprazole Sodium (Protonix Ec Tab) 20 mg PO 0600 [facility] Last Admin: 11/13/18 05:45 Dose: 20 mg Risperidone (Risperdal Tab) 0.5 mg PO DAILY [facility]; Protocol Last Admin: 11/13/18 09:56 Dose: 0.5 mg - Labs Labs: 11/13/18 06:00 11/13/18 06:00 - Constitutional Appears: Non-toxic, Chronically Ill - Head Exam Head Exam: ATRAUMATIC, NORMOCEPHALIC - Eye Exam Eye Exam: EOMI. absent: Scleral icterus - ENT Exam ENT Exam: Mucous Membranes Moist - Neck Exam Neck exam: Positive for: Normal Inspection - Respiratory Exam Respiratory Exam: Clear to Auscultation Bilateral. absent: Rales, Rhonchi, Wheezes - Cardiovascular Exam Cardiovascular Exam: RRR, +S1, +S2 - GI/Abdominal Exam GI & Abdominal Exam: Soft. absent: Distended, Tenderness - Extremities Exam Extremities exam: soft, nontender - Neurological Exam Neurological exam: Alert, Awake, nonverbal - Skin Skin Exam: Dry, Warm Assessment and Plan - Assessment and Plan (Free Text) Assessment: 78-year-old female with a past medical history of Alzheimer's dementia, hypertension, atrial fibrillation who presented to the emergency department for issues with right hand swelling for approximately 4 days. Infectious disease consultation was requested for weakness. Plan: Urinary tract infection Right hand swelling Alzheimer's dementia Hypertension Atrial fibrillation Urine culture with GNR Has been afebrile with no leukocytosis Blood cultures negative 2/2 day 2 Continue cefepime day 2 Will discontinue vancomycin Discussed with at bedside We will follow alongside you Patient was seen and examined and case to be discussed with attending physician Thank you for the pleasure participating in the care of this interesting patient <Oscar Arthur - Last Filed: 11/13/18 23:00> Objective - Vital Signs/Intake and Output Vital Signs (last 24 hours): Temp Pulse Resp BP Pulse Ox 98.6 F 84 20 148/81 95 11/13/18 04:53 11/13/18 18:00 11/13/18 04:53 11/13/18 09:57 11/13/18 04:53 - Medications Medications: Current Medications Apixaban (Eliquis) 2.5 mg PO BID [facility]; Protocol Last Admin: 11/13/18 17:19 Dose: 2.5 mg Aspirin (Ecotrin) 81 mg PO DAILY [facility] Last Admin: 11/13/18 09:56 Dose: 81 mg Cholecalciferol (Vitamin D) 2,000 intlu PO DAILY [facility] Last Admin: 11/13/18 09:56 Dose: 2,000 intlu Donepezil HCl (Aricept) 10 mg PO DAILY [facility] Last Admin: 11/13/18 09:56 Dose: 10 mg Furosemide (Lasix) 40 mg IVP DAILY [facility] Last Admin: 11/13/18 09:57 Dose: 40 mg Cefepime HCl (Maxipime 1gm) 1 gm in 100 mls @ 100 mls/hr IVPB Q12 [facility]; Protocol Stop: 11/20/18 22:01 Last Admin: 11/13/18 21:27 Dose: 100 mls/hr Memantine (Namenda) 5 mg PO DAILY [facility] Last Admin: 11/13/18 09:56 Dose: 5 mg Mirtazapine (Remeron) 7.5 mg PO HS [facility] Last Admin: 11/13/18 21:27 Dose: 7.5 mg Non-Formulary Medication (Bisoprolol Fumarate [Bisoprolol Fumarate]) 5 mg PO DAILY [facility] Last Admin: 11/13/18 09:57 Dose: Not Given Ondansetron HCl (Zofran Tab) 4 mg PO Q6H PRN PRN Reason: Nausea/Vomiting Pantoprazole Sodium (Protonix Ec Tab) 20 mg PO 0600 [facility] Last Admin: 11/13/18 05:45 Dose: 20 mg Risperidone (Risperdal Tab) 0.5 mg PO DAILY [facility]; Protocol Last Admin: 11/13/18 09:56 Dose: 0.5 mg - Labs Labs: 11/13/18 06:00 11/13/18 06:00 Assessment and Plan - Assessment and Plan (Free Text) Plan: Infectious Diseases Attending Physician Attestation Patient seen and examined at bedside, discussed with medical observer. I have reviewed the HPI, ROS, physical examination findings. I have also reviewed the pertinent labs and diagnostic imaging. I have fully participiated in the care of this patient. I agree with the above findings, assessment, plan. In addition, will continue Cefepime for patient with UTI with gram negative bacilli. Follow up identification and sensitivities. Will continue to monitor clinically.
[2018-11-13 18:54] VITALS: RESP 20
[2018-11-14] MEDS: Pantoprazole 20 mg EC Tab PO SCH (05:36)
[2018-11-14 07:19] LABS: HEMOGLOBIN 13.9 g/dL (12.0-16.0); MEAN CELL VOLUME 99.1 fl (80.0-105.0); MEAN CORPUSCULAR HEMOGLOBIN 31.4 pg (25.0-35.0); MEAN CORPUSCULAR HGB CONC 31.7 g/dl (31.0-37.0); MEAN PLATELET VOLUME 10.7 fl (7.0-11.0); RBC 4.43 10^6/uL (3.5-6.1); RED CELL DISTRIBUTION WIDTH 13.9 % (11.5-14.5); WHITE BLOOD COUNT 6.3 10^3/uL (4.5-11.0)
[2018-11-14 07:37] LABS: ALBUMIN 3.3 g/dL (3.0-4.8); ALT/SGPT 21 U/L (7-56); AST/SGOT 30 U/L (14-36); BLOOD UREA NITROGEN 41 mg/dL (7-21); GFR NON-AFRICAN AMERICAN > 60
[2018-11-14] MEDS: BISOPROLOL FUMARATE 5 MG PO SCH (08:59)
[2018-11-14] MEDS: Cefepime 1gm in NS 100ml 1 GM/100 ML BAG IVPB SCH (09:00)
[2018-11-14] MEDS: Cholecalciferol 1,000 INTLU TAB PO SCH (09:01)
[2018-11-14 09:02] VITALS: BP 151/79; PULSE 81; TEMP 97.6; O2SAT 97
--- NOTE | 2018-11-14 11:37 | CP.PCM.PN ---
<Grupo Goel - Last Filed: 11/14/18 11:35> Subjective - Date & Time of Evaluation Date of Evaluation: 11/14/18 Time of Evaluation: 07:50 - Subjective Subjective: Grupo Goel D.O. PGY-3, Internal Medicine Resident, Infectious Disease Progress Note 78-year-old female with a past medical history of Alzheimer's dementia, hypertension, atrial fibrillation who presented to the emergency department for issues with right hand swelling for approximately 4 days. Infectious disease consultation was requested for weakness. Patient was seen and examined at bedside. Very pleasant as always. Smiling. Appears comfortable. Still nonverbal. Objective - Vital Signs/Intake and Output Vital Signs (last 24 hours): Temp Pulse Resp BP Pulse Ox 97.6 F 81 20 151/79 H 97 11/14/18 06:00 11/14/18 06:00 11/14/18 06:00 11/14/18 09:00 11/14/18 06:00 Intake and Output: 11/14/18 11/14/18 06:59 18:59 Intake Total 0 Balance 0 - Medications Medications: Current Medications Ampicillin (Ampicillin) 500 mg PO QID [facility]; Protocol Stop: 11/19/18 14:01 Apixaban (Eliquis) 2.5 mg PO BID [facility]; Protocol Last Admin: 11/14/18 09:00 Dose: 2.5 mg Cholecalciferol (Vitamin D) 2,000 intlu PO DAILY [facility] Last Admin: 11/14/18 09:01 Dose: 2,000 intlu Donepezil HCl (Aricept) 10 mg PO DAILY [facility] Last Admin: 11/14/18 08:59 Dose: 10 mg Furosemide (Lasix) 40 mg IVP DAILY [facility] Last Admin: 11/14/18 09:00 Dose: 40 mg Memantine (Namenda) 5 mg PO DAILY [facility] Last Admin: 11/14/18 09:01 Dose: 5 mg Mirtazapine (Remeron) 7.5 mg PO HS [facility] Last Admin: 11/13/18 21:27 Dose: 7.5 mg Non-Formulary Medication (Bisoprolol Fumarate [Bisoprolol Fumarate]) 5 mg PO DAILY [facility] Last Admin: 11/14/18 08:59 Dose: Not Given Ondansetron HCl (Zofran Tab) 4 mg PO Q6H PRN PRN Reason: Nausea/Vomiting Pantoprazole Sodium (Protonix Ec Tab) 20 mg PO 0600 [facility] Last Admin: 11/14/18 05:36 Dose: 20 mg Risperidone (Risperdal Tab) 0.5 mg PO DAILY [facility]; Protocol Last Admin: 11/14/18 09:01 Dose: 0.5 mg - Labs Labs: 11/14/18 06:30 11/14/18 06:30 - Constitutional Appears: Non-toxic, Chronically Ill female - Head Exam Head Exam: ATRAUMATIC, NORMOCEPHALIC - Eye Exam Eye Exam: EOMI. absent: Scleral icterus - ENT Exam ENT Exam: Mucous Membranes Moist - Neck Exam Neck exam: Positive for: Normal Inspection - Respiratory Exam Respiratory Exam: Clear to Auscultation Bilateral. absent: Rales, Rhonchi, Wheezes - Cardiovascular Exam Cardiovascular Exam: RRR, +S1, +S2 - GI/Abdominal Exam GI & Abdominal Exam: Soft. absent: Distended, Tenderness - Extremities Exam Extremities exam: soft, nontender - Neurological Exam Neurological exam: Alert, Awake, nonverbal - Skin Skin Exam: Dry, Warm Assessment and Plan - Assessment and Plan (Free Text) Assessment: 78-year-old female with a past medical history of Alzheimer's dementia, hypertension, atrial fibrillation who presented to the emergency department for issues with right hand swelling for approximately 4 days. Infectious disease consultation was requested for weakness. Plan: Urinary tract infection Right hand swelling Alzheimer's dementia Hypertension Atrial fibrillation Cultures growing E coli that is pansensitive Blood cultures negative 2/2 day 3 Discontinue cefepime Started on ampicillin PO Discussed with primary attending physician Patient was seen and examined and case was discussed with attending physician Thank you for the pleasure participating in the care of this interesting patient <Jason Barrientos - Last Filed: 11/14/18 12:13> Objective - Vital Signs/Intake and Output Vital Signs (last 24 hours): Temp Pulse Resp BP Pulse Ox 97.6 F 81 20 151/79 H 97 11/14/18 06:00 11/14/18 06:00 11/14/18 06:00 11/14/18 09:00 11/14/18 06:00 Intake and Output: 11/14/18 11/14/18 06:59 18:59 Intake Total 0 Balance 0 - Medications Medications: Current Medications Ampicillin (Ampicillin) 500 mg PO QID [facility]; Protocol Stop: 11/19/18 14:01 Apixaban (Eliquis) 2.5 mg PO BID [facility]; Protocol Last Admin: 11/14/18 09:00 Dose: 2.5 mg Cholecalciferol (Vitamin D) 2,000 intlu PO DAILY [facility] Last Admin: 11/14/18 09:01 Dose: 2,000 intlu Donepezil HCl (Aricept) 10 mg PO DAILY [facility] Last Admin: 11/14/18 08:59 Dose: 10 mg Furosemide (Lasix) 40 mg IVP DAILY [facility] Last Admin: 11/14/18 09:00 Dose: 40 mg Memantine (Namenda) 5 mg PO DAILY [facility] Last Admin: 11/14/18 09:01 Dose: 5 mg Mirtazapine (Remeron) 7.5 mg PO HS [facility] Last Admin: 11/13/18 21:27 Dose: 7.5 mg Non-Formulary Medication (Bisoprolol Fumarate [Bisoprolol Fumarate]) 5 mg PO DAILY [facility] Last Admin: 11/14/18 08:59 Dose: Not Given Ondansetron HCl (Zofran Tab) 4 mg PO Q6H PRN PRN Reason: Nausea/Vomiting Pantoprazole Sodium (Protonix Ec Tab) 20 mg PO 0600 [facility] Last Admin: 11/14/18 05:36 Dose: 20 mg Risperidone (Risperdal Tab) 0.5 mg PO DAILY [facility]; Protocol Last Admin: 11/14/18 09:01 Dose: 0.5 mg - Labs Labs: 11/14/18 06:30 11/14/18 06:30 Attending/Attestation - Attestation I have personally seen and examined this patient.: Yes I have fully participated in the care of the patient.: Yes I have reviewed all pertinent clinical information, including history, physical exam and plan: Yes
--- NOTE | 2018-11-14 13:02 | PN ---
DATE: 11/14/2018 SUBJECTIVE: The patient is without shortness of breath. OBJECTIVE: VITAL SIGNS: Blood pressure 151/80, heart rates in the 80s. NECK: Negative JVD. LUNGS: Without rales. HEART: S1, S2. EXTREMITIES: Without edema. LABORATORY DATA: Hemoglobin is 13.9. Chemistries; BUN and creatinine 41 and 0.9. IMPRESSION: 1. Chronic atrial fibrillation. 2. Dementia. 3. Urinary tract infection. 4. Moderate pulmonary hypertension. 5. Alzheimer's disease. 6. Dilated left atrium. Given these findings, the patient is tolerating the Eliquis. We will discontinue the aspirin. We will discontinue the telemetry today. Maykel Burgos MD
--- NOTE | 2018-11-15 00:12 | DS ---
HISTORY OF PRESENT ILLNESS: Hopefully a discharge summary on a patient Meg Alberto. She is resting comfortably in bed with the feeding her at bedside. MEDICATIONS: She is on Aricept, Bystolic, Ecotrin, Eliquis, Lasix, Maxipime, Namenda, Protonix, Remeron, Risperdal, vitamin D and Zofran. PHYSICAL EXAMINATION GENERAL: She is alert and smiling, nonverbal, that is her baseline from her dementia. She is lying in bed. No apparent distress. VITAL SIGNS: She has a 97.6 temperature, 81 pulse, 151/79 blood pressure, 20 respiratory rate and 97% O2 sat on room air. HEENT: Head is atraumatic, normocephalic. CARDIOPULMONARY: Heart is regular rate. LUNGS: With decreased breath sounds but clear. ABDOMEN: Soft. EXTREMITIES: No edema. LABORATORY DATA: She has a 6.3 white count, 13.9 hemoglobin, 42.9 hematocrit with 280 platelets. A 143 sodium, potassium 4.1, BUN is 41, creatinine 0.9, GFR is greater than 60, better, calcium is 9.0, total bili is 0.4, AST is 30, ALT is 21, alk phos 86 and C-reactive protein is 14.81, high. Total protein is 6.7. ASSESSMENT AND PLAN: She had a urinary tract infection. I am hoping we could transfer her to [facility] today for continued IV antibiotics and I will discuss this with Infectious Disease. Chris Hamilton DO
== END 2018-11-14 14:58 | disposition home or self-care (01) | DRG 603 ==
LOC: ED 10:59 → ERH 12:50 → 3RSO 17:01
PROVIDERS: ADMIT Family Medicine; ATTEND Family Medicine
DX: L03.113 Cellulitis of right upper limb (principal); N39.0 Urinary tract infection, site not specified; F02.80 Dementia in other diseases classified elsewhere, unspecified severity, without behavioral disturbance, psychotic disturbance, mood disturbance, and anxiety; G30.9 Alzheimer's disease, unspecified; I48.2 Chronic atrial fibrillation; I27.20 Pulmonary hypertension, unspecified; K21.9 Gastro-esophageal reflux disease without esophagitis; I10 Essential (primary) hypertension; Z87.01 Personal history of pneumonia (recurrent); Z87.440 Personal history of urinary (tract) infections; Z79.01 Long term (current) use of anticoagulants; Z79.82 Long term (current) use of aspirin